=== PATIENT | female | born 1995 | race African-American/Black ===

== ENCOUNTER → 2020-11-13 09:11 | Outpatient (CLI) | payer OTHER, SELFPAY ==
[2020-11-13 10:11] LABS: Add Manual Diff / Slide Review NO; Basophils Absolute Auto 0 /uL (0-100); Basophils Percent Auto 0.3 % (0-2); Eosinophils Absolute Auto 100 /uL (0-450); Eosinophils Percent Auto 0.6 % (2-4); Hematocrit 36.5 % (36-46); Hemoglobin 12.7 g/dL (12.0-16.0); Lymphocytes Absolute Auto 2000 /uL (1100-4500); Lymphocytes Percent Auto 20.8 % (25-40); Mean Corpuscular HGB Conc 34.8 % (30-36); Mean Corpuscular Hemoglobin 28.3 PG (26-34); Mean Corpuscular Volume 81.4 fL (80-100); Monocytes Absolute Auto 700 /uL (0-900); Monocytes Percent Auto 6.8 % (3-14); Neutrophils Absolute Auto 6900 /uL (1500-7000); Neutrophils Percent Auto 71.5 % (50-75); Platelet Count 248 X10^3/uL (150-400); Red Blood Cell Count 4.48 X10^6/uL (4.0-5.2); Red Cell Distribution Width 13.7 % (11.6-14.8); White Blood Cell Count 9.7 X10^3/uL (4.5-11.0)
[2020-11-13 10:15] LABS: Appearance Urine UA CLEAR; Bilirubin Urine UA NEGATIVE (NEGATIVE); Color Urine UA YELLOW; Glucose Urine UA NEGATIVE (Negative); Ketones Urine UA NEGATIVE (NEGATIVE); Leukocyte Esterase Urine UA NEGATIVE (NEGATIVE); Nitrite Urine UA NEGATIVE (Negative); Occult Blood Urine UA NEGATIVE (Negative); Protein Urine UA NEGATIVE (Negative); Specific Gravity Urine UA 1.015 (1.000-1.035); Urobilinogen Urine UA 0.2 E.U./dL (0.2)
[2020-11-14 10:48] LABS: RPR Screen Non Reactive (Non Reactive); Varicella IgG Antibody 588 index (Immune >165)
[2020-11-15 17:14] LABS: HIV 1 & 2 Ab/Ag 4th Gen Combo NEGATIVE (NEGATIVE); Hep C Virus Ab w/Reflex Quant NEGATIVE s/c (NEGATIVE); Hepatitis B Surface Antigen NEGATIVE s/c (NEGATIVE); Rubella Antibody IgG 21.8 IU/mL (>15)
== END ==
PROVIDERS: PCP Family Medicine; Referring Provider Family Medicine; Visit Provider Family Medicine
DX: Z34.81 Encounter for supervision of other normal pregnancy, first trimester (principal)
CPT/HCPCS: 36415; 80055; 81003; 86787; 86803; 86850; 86900; 86901; 87086; 87389

== ENCOUNTER → 2020-12-20 14:14 | Outpatient (CLI) | payer OTHER, SELFPAY ==
[2020-12-28 09:50] LABS: AFP, Serum 58.3 ng/mL (.); Estriol, Free 1.41 ng/mL (.); Inhibin A, Dimeric 273.49 pg/mL (.); Inhibin A, MoM 2.14 (.); Maternal Ethnicity Caucasian (.); Maternal Weight 210 lbs (.); Number of Fetuses No (.); OSBR Risk 1 IN 987 (.); Results Report (.); Test Results *Screen Negative* (.); hCG, MoM 3.29 (.); hCG, Serum 91637 mIU/mL (.)
== END ==
PROVIDERS: PCP Family Medicine; Referring Provider Family Medicine; Visit Provider Family Medicine
DX: Z34.90 Encounter for supervision of normal pregnancy, unspecified, unspecified trimester (principal); Z3A.16 16 weeks gestation of pregnancy
CPT/HCPCS: 36415; 82105; 82677; 84702; 86336

== ENCOUNTER → 2020-12-31 10:34 | Outpatient (CLI) | payer OTHER, SELFPAY ==
--- NOTE | 2020-12-31 10:36 | DI.US.S_ITS ---
PROCEDURE: US OB >= 14 WEEKS FETUS INDICATIONS: ANATOMY SCREENING OUTSIDE/PRIOR DATING DATA: Last menstrual period (LMP): 08/07/2020. LMP-based estimated date of delivery (GABRIELLE): 05/14/2021 . First dating scan (date and location): 12/31/2020 . Estimated date of delivery (GABRIELLE) from first dating scan: 05/22/2021 . TECHNIQUE: Real-time scanning was performed of the fetus, with image documentation and biometric measurements. Endovaginal scanning: No COMPARISON: None. FINDINGS: General: A single living intrauterine gestation is present. Presentation: Vertex. Placenta: Placental position is posterior , and low-lying with the inferior margin of the placenta 1.6 cm above the internal cervical os. Amniotic fluid index: 13.9 cm, normal range is 5-24 cm. heart rate: 155 beats per minute. Maternal cervical canal: 4.6 cm long. Normal lower limit is 2.5 cm. biometrics: Biparietal diameter: 19 weeks 4 days Head circumference: 19 weeks 3 days Abdominal circumference: 19 weeks 5 days Femur length: 20 weeks 2 days Estimated gestational age from initial scan: 19 weeks 5 days Composite gestational age from present scan: 19 weeks 5 days Estimated weight and percentile: 321 g; 9th percentile Measurement variability for biometric dating: +/- 7 days from 14 weeks to 15 weeks 6 days gestation, +/- 10 days from 16 weeks to 21 weeks 6 days gestation, +/- 2 weeks from 22 weeks to 27 weeks 6 days gestation, +/- 3 weeks for 28 weeks gestation or later. weight reference: 4500 g or EFW >90/95% is considered macrosomia or large for gestational age. EFW <10% is small for gestational age. EFW 5% or less is considered intra-uterine growth restriction. Anatomic survey: Neuro: Ventricles are non-dilated at less than 10 mm. Cisterna magna is normal at 3-11 mm. Cerebellum is normal in size and morphology. Nuchal skin fold: Normal at less than 6 mm between 14-21 weeks gestational age. Face: Nose and lips, facial profile are normal. Spine: No evidence for spina bifida. Heart: 4-chambered heart is present, with normal ventricular outflow tracts. Diaphragm: Diaphragm is intact. Stomach: Left-sided stomach is present. Kidneys: No hydronephrosis. Normal is less than 5 mm in 2nd trimester, less than 7 mm in 3rd trimester. Cord: 3-vessel cord has orthotopic insertion. Bladder: Normal in size. Extremities: All 4 extremities identified. IMPRESSION: 1. Single living IUP with composite age of 19 weeks 5 days corresponding to ultrasound GABRIELLE of 05/22/2021. 2. Normal anatomic survey. 3. Low-lying placenta. Follow-up recommended. Dictated by: Mj Tristan [facility] Interpreted: Socrates Shoemaker MD on 12/31/2020 at 13:08 Transcribed by: JOSEPH on 12/31/2020 at 13:10 Approved by: Socrates Shoemaker M.D. on 12/31/2020 at 16:32
== END ==
PROVIDERS: PCP Family Medicine; Referring Provider Family Medicine; Visit Provider Family Medicine
DX: Z36.89 Encounter for other specified antenatal screening (principal); Z3A.19 19 weeks gestation of pregnancy
CPT/HCPCS: 76811

== ENCOUNTER → 2021-02-08 08:57 | Outpatient (CLI) | payer OTHER, SELFPAY ==
--- NOTE | 2021-02-08 08:58 | DI.US.S_ITS ---
PROCEDURE: US OB LIMITED INDICATIONS: SGA; LOW-LYING PLACENTA OUTSIDE/PRIOR DATING DATA: Last menstrual period (LMP): 08/07/2020 . LMP-based estimated date of delivery (GABRIELLE): 05/14/2021 . First dating scan (date and location): 12/31/2020 . Estimated date of delivery (GABRIELLE) from first dating scan: 05/22/2021 . TECHNIQUE: Real-time scanning was performed of the fetus, with image documentation. COMPARISON: None. FINDINGS: A single living intrauterine gestation is present. Presentation: Vertex. Placenta: Placental position is posterior and low lying, without previa. Amniotic fluid index: 14.7 cm, normal range is 5-24 cm. heart rate: 152 beats per minute. Maternal cervical canal: 4.9 cm long. Normal lower limit is 2.5 cm. Estimated gestational age from initial ultrasound: 25 weeks 2 days Estimated gestational age by today's ultrasound: 25 weeks 3 days Estimated weight 851 grams. 60 second percentile. IMPRESSION: 1. Single live intrauterine with an estimated gestational age of 25 weeks 2 days. 2. Posterior low-lying placenta with the inferior margin 1.1 centimeters from the internal os. Dictated by: Blayne Bustamante M.D. on 02/08/2021 at 16:33 Approved by: Blayne Bustamante M.D. on 02/08/2021 at 16:36
== END ==
PROVIDERS: PCP Family Medicine; Referring Provider Family Medicine; Visit Provider Family Medicine
DX: O44.42 Low lying placenta NOS or without hemorrhage, second trimester (principal); O36.5920 Maternal care for other known or suspected poor fetal growth, second trimester, not applicable or unspecified; Z3A.25 25 weeks gestation of pregnancy
CPT/HCPCS: 76815

== ENCOUNTER → 2021-03-03 09:44 | Outpatient (CLI) | payer OTHER, SELFPAY ==
[2021-03-03 11:51] LABS: Hematocrit 32.5 % (36-46); Hemoglobin 10.7 g/dL (12.0-16.0)
[2021-03-03 12:44] LABS: GTT (PREG) 1 Hour PP 50gm Dose 156 mg/dL (76-139)
== END ==
PROVIDERS: PCP Family Medicine; Referring Provider Family Medicine; Visit Provider Family Medicine
DX: Z34.90 Encounter for supervision of normal pregnancy, unspecified, unspecified trimester (principal); Z3A.26 26 weeks gestation of pregnancy
CPT/HCPCS: 36415; 82950; 85014; 85018

== ENCOUNTER → 2021-03-08 07:02 | Outpatient (CLI) | payer OTHER, SELFPAY ==
[2021-03-08 09:38] LABS: Glucose Fasting 93 mg/dL (70-100)
[2021-03-08 09:54] LABS: Glucose 1 Hour 175 mg/dL (70-170)
[2021-03-08 10:21] LABS: Glucose 2 Hour 142 mg/dL (70-140)
[2021-03-08 10:37] LABS: Glucose Tol Interpretation INTERPRETATION
[2021-03-08 12:21] LABS: Glucose 3 Hour 103 mg/dL (70-115)
== END ==
PROVIDERS: PCP Family Medicine; Referring Provider Family Medicine; Visit Provider Family Medicine
DX: Z34.83 Encounter for supervision of other normal pregnancy, third trimester (principal); Z3A.29 29 weeks gestation of pregnancy
CPT/HCPCS: 36415; 82951; 82952

== ENCOUNTER → 2021-04-14 09:34 | Outpatient (CLI) | payer OTHER, SELFPAY ==
--- NOTE | 2021-04-14 11:51 | DIAB.GDA ---
Initial Gestational Diabetes Assessment Name: Sonya Alford Date: 04/14/21 Time: 930-1030a Dx: Gestational Diabetes Provider: Emmanuel GABRIELLE: 05/18/21 P: 0 Weeks: 35 Sonya presents for initial diabetes visit. PMH PCOS. No h/o HgA1c in labs. Elevated OGTT with 1 and 2 hour. States she has discussed nutrition [place] Has been conscious of carb intake and trying to be more active. Seems to have a good base knowledge of GDM pathophysiology and link to insulin resistance. Some high carb intake with fruit beverages (45g CHO per serving). Has been fasting as provider suggested for 12 hours overnight. Improved FBG with this, though endorses feeling quite hungry before bed. Sometimes having fruit beverage at 830p or in the afternoon, which may contribute to elevated dinner numbers. Otherwise most meals and snacks are within reccs. Some snacks missing protein. Staying well hydrated. Recently returned from [place] (baby shower with family there). Reports some potential higher carb intake during the trip. Anthropometrics: Ht: 62 Wt: 219.1# (last provider visit- seeing provider today and will get weight) Prepregnancy wt: 205# Physical Activity: Most days walks dogs 1-2 x per day for 20-30 min each. Endorses walking with family during vacation. Self-Monitoring Blood Glucose: No FBG elevations. No after breakfast elevations. 3/6 elevated lunch and 3/6 elevated dinner readings. Denies higher carb intake at these meals. Could be the fruit drink on these days? Encouraged physical activity after meals and avoiding sweetened beverages. Date Pre Post Pre Post Pre Post HS 04/08 90 105 126 124 04/09 90 117 127 120 04/10 90 119 107 123 04/11 89 112 112 114 04/12 86 120 130 108 04/13 84 108 123 126 04/14 88 111 Diabetes Medications: None Pertinent Labs: OGTT: 93, 175 H, 142 H, 103 Intervention: This participant was very receptive. Provided appropriate educational handouts. Discussed the following topics: GDM pathophysiology and impact of hyperglycemia on mom and baby Risk for T2DM for mom and baby in the future Ways to reduce risk T2DM Plate Method, meal timing, carb counting, pairing macronutrients and spreading out CHO for better BG management, balanced snacks, impact of sweetened beverages on BG reccs benefits and resources OGTT HGA1c Blood glucose goals (FBG: <95 and 2 hour <120 mg/dL) Impact of macronutrients on blood glucose Recommended servings for carbohydrates at meals and snacks Brainstormed appropriate meal plan based on her food preferences Role of physical activity and following provider guidelines for safety Goals: Avoid juice/fruit beverages Have protein at meals and snacks Stay active- try to be active after meals Sonya is having some hyperglycemia after lunch and dinner. It is hard to say exactly why this is. Seems related to fruit beverage choice, since she endorses reasonable carb intake at meals. She may benefit from medication management, but fastings are in range and her postprandial readings may improve now that she has returned from vacation with family. She plans to see her provider today. Follow-up: KILO MARQUES follow-up prn. Since she is quite late in her , she would like to follow-up as needed. LILIAM/SHELLI agreed to this plan, but advised that if she is ends up on DM medications we should meet again to further discuss. She agreed to this plan. Wanda Torres RDN, SHELLI Certified Diabetes Care and Homebound Teacher T: [phone] F: [phone] [email or web address] Thank you for this referral
== END ==
PROVIDERS: PCP Family Medicine; Referring Provider Family Medicine; Visit Provider Family Medicine
DX: O24.410 Gestational diabetes mellitus in pregnancy, diet controlled (principal)
CPT/HCPCS: G0108

== ENCOUNTER → 2021-04-21 14:15 | Outpatient (CLI) | payer OTHER, SELFPAY ==
--- NOTE | 2021-04-21 14:15 | DI.US.S_ITS ---
PROCEDURE: US OB LIMITED INDICATIONS: Gestational diabetes, check growth OUTSIDE/PRIOR DATING DATA: Last menstrual period (LMP): 08/07/2020. LMP-based estimated date of delivery (GABRIELLE): 05/14/2021. First dating scan (date and location): 12/31/2020. Estimated date of delivery (GABRIELLE) from first dating scan: 05/22/2021. TECHNIQUE: Real-time scanning was performed of the fetus, with image documentation and biometric measurements. COMPARISON: [facility], OB LIMITED, 02/08/2021, 9:12. FINDINGS: General: A single living intrauterine gestation is present. Presentation: Vertex Placenta: Placental position is posterior. Lower edge of placenta and cervix are not well seen on this study. Amniotic fluid index: 8.9 cm, normal range is 5-24 cm. heart rate: 137 beats per minute. Maternal cervical canal: Not well seen . biometrics: Biparietal diameter: 8.6 cm, 34 weeks, 6 days. Head circumference: 30.9 cm, 34 weeks, 3 days. Abdominal circumference: 29.8 cm, 33 weeks, 6 days. Femur length: 7 cm, 35 weeks, 5 days Estimated gestational age from initial scan: 35 weeks, 4 days Composite gestational age from present scan: 34 weeks, 5 days. Estimated weight and percentile: 2448 grams, 22 percent. Measurement variability for biometric dating: +/- 7 days from 14 weeks to 15 weeks 6 days gestation, +/- 10 days from 16 weeks to 21 weeks 6 days gestation, +/- 2 weeks from 22 weeks to 27 weeks 6 days gestation, +/- 3 weeks for 28 weeks gestation or later. weight reference: 4500 g or EFW >90/95% is considered macrosomia or large for gestational age. EFW <10% is small for gestational age. EFW 5% or less is considered intra-uterine growth restriction. Other: Not applicable. IMPRESSION: 1. Single live intrauterine with fetus in vertex presentation. heart rate is 137 beats per minute. Normal growth and normal amount of amniotic fluid. 2. Lower edge of placenta and cervix are not well visualized on this study. Low lying placenta cannot be excluded. 3. Estimated weight is at 22 percent on the current study. Dictated by: Socrates Shoemaker M.D. on 04/21/2021 at 16:04 Approved by: Socrates Shoemaker M.D. on 04/21/2021 at 16:06
== END ==
PROVIDERS: PCP Family Medicine; Referring Provider Family Medicine; Visit Provider Family Medicine
DX: O24.410 Gestational diabetes mellitus in pregnancy, diet controlled (principal); Z3A.34 34 weeks gestation of pregnancy
CPT/HCPCS: 76815

== ENCOUNTER → 2021-04-22 09:39 | Outpatient (CLI) | payer OTHER, SELFPAY ==
[2021-04-23 12:50] LABS: Strep Grp B PCR NEG for Grp B Strep
== END ==
PROVIDERS: PCP Family Medicine; Visit Provider Family Medicine
DX: Z3A.36 36 weeks gestation of pregnancy (principal)
CPT/HCPCS: 87653

== ENCOUNTER → 2021-05-03 07:14 | Outpatient (CLI) | payer OTHER, SELFPAY ==
--- NOTE | 2021-05-03 07:15 | DI.US.S_ITS ---
PROCEDURE: US OB LIMITED INDICATIONS: LOW-LYING PLACENTA OUTSIDE/PRIOR DATING DATA: Last menstrual period (LMP): 08/07/2020. LMP-based estimated date of delivery (GABRIELLE): 05/14/2021. First dating scan (date and location): 12/31/2020. Estimated date of delivery (GABRIELLE) from first dating scan: 05/22/2021. . TECHNIQUE: Real-time scanning was performed of the fetus, with image documentation. COMPARISON: [facility], OB LIMITED, 02/08/2021, 9:12. [facility], OB >= 14 WEEKS FETUS, 12/31/2020, 9:57. [facility] OB LIMITED, 04/21/2021, 14:31. FINDINGS: A single living intrauterine gestation is present. Presentation: Vertex. Placenta: Placental position is posterior, without previa. The head is at the cervix. On the images provided, there is no visualization of placenta in relation to the cervix. Amniotic fluid index: 12.3 cm, normal range is 5-24 cm. heart rate: 157 beats per minute. Maternal cervical canal: 3.8 cm. Estimated gestational age from initial scan: 37 weeks 2 days. IMPRESSION: 1. Single live intrauterine . 2. Poor visualization of the placenta as described above. However, given images provided, there is no suspicion for placental previa or low lying placenta. Dictated by: Crista Esparza M.D. on 05/03/2021 at 12:57 Approved by: Crista Esparza M.D. on 05/03/2021 at 14:42
== END ==
PROVIDERS: Referring Provider Family Medicine; Visit Provider Family Medicine
DX: O44.43 Low lying placenta NOS or without hemorrhage, third trimester (principal); Z3A.37 37 weeks gestation of pregnancy
CPT/HCPCS: 76815; 76817

== ENCOUNTER 2021-05-15 18:58 | Inpatient (IN) | payer OTHER, SELFPAY ==
[2021-05-15 20:08] VITALS: BP 138/85
[2021-05-15 20:28] LABS: Add Manual Diff / Slide Review NO; Basophils Absolute Auto 100 /uL (0-100); Basophils Percent Auto 1.1 % (0-2); Eosinophils Absolute Auto 0 /uL (0-450); Eosinophils Percent Auto 0.4 % (2-4); Hematocrit 31.2 % (36-46); Hemoglobin 10.2 g/dL (12.0-16.0); Lymphocytes Absolute Auto 2100 /uL (1100-4500); Mean Corpuscular HGB Conc 32.6 % (30-36); Mean Corpuscular Hemoglobin 23.5 PG (26-34); Mean Corpuscular Volume 72.1 fL (80-100); Monocytes Absolute Auto 700 /uL (0-900); Monocytes Percent Auto 6.3 % (3-14); Neutrophils Absolute Auto 7800 /uL (1500-7000); Neutrophils Percent Auto 72.2 % (50-75); Platelet Count 307 X10^3/uL (150-400); Red Blood Cell Count 4.33 X10^6/uL (4.0-5.2); Red Cell Distribution Width 15.4 % (11.6-14.8); White Blood Cell Count 10.7 X10^3/uL (4.5-11.0)
[2021-05-15] MEDS: DINOPROSTONE VAG (CERVIDIL) 10 MG VAG (20:30)
[2021-05-15] MEDS: CALCIUM CARBONATE 500 MG TAB 1000 MG PO (20:48)
[2021-05-16 00:46] LABS: COVID19 -Nasal RAPID Negative (Negative)
[2021-05-16] MEDS: CALCIUM CARBONATE 500 MG TAB 1000 MG PO ×3 (01:55→13:00)
[2021-05-16] MEDS: ZOLPIDEM 5 MG TABLET PO (01:55)
[2021-05-16] MEDS: fentaNYL 100 MCG/2 ML INJ 50 MCG IV ×2 (04:48→06:46)
--- NOTE | 2021-05-16 07:13 | PM.OBHP.IH.1 ---
OB HPI Date/Time Date of admission: 05/15/21 Date Patient Seen: 05/16/21 Time Patient Seen: 08:00 History of Present Condition Chief complaint: INDUCTION GABRIELLE Calculator Estimated Delivery Date Method Current WG Current Estimate 05/18/21 Conception 39w 5d Other Estimates 05/14/21 LMP (Certain) 40w 2d 05/19/21 Ultrasound #1 39w 4d : 1 Para: 0 Narrative: 26-year-old 39 weeks and 5 days gestation here for induction due to GDM A1. Diabetes has been well controlled with diet alone all sugars within normal range. Last estimated weight 22nd percentile. She received Cervidil overnight and has been alexus painfully for several hours. Good movement, no leaking or bleeding. care: good care, initiated at week # (10), number of visits (13) and pounds weight gain (19) Dating criteria OB: other (Conception date ) Ultrasounds: normal mid trimester US Obstetrical complications: gestational diabetes Medical complications OB: none Indications Indication for induction OB: gestational diabetes Preadmission Labs Last OB Lab Results: Blood Type A Positive 05/15/21 20:15 05/15/21 Antibody Screen Negative 05/15/21 20:15 05/15/21 Hematocrit 31.2 % (36-46) L 05/15/21 20:15 05/15/21 Hemoglobin 10.2 g/dL (12.0-16.0) L 05/15/21 20:15 05/15/21 Hepatitis B Surface Antigen Negative s/c (NEGATIVE) 11/13/20 09:42 11/13/20 Hepatitis C Antibody Negative s/c (NEGATIVE) 11/13/20 09:42 11/13/20 Rubella Antibody 21.8 IU/mL (>15) 11/13/20 09:42 11/13/20 Varicella-Zoster IgG Antibody 588 index (Immune >165) 11/13/20 09:42 11/13/20 Glucose 1 Hour 156 mg/dL (76-139) H 03/03/21 11:05 03/03/21 Group B Streptococcus (PCR) Neg for grp b strep 04/22/21 09:39 04/22/21 Glucose Tolerance Testing: Fasting (93), 1 hr (175), 2 hr (142) and 3 hr (103) -: Chlamydia screen: negative, Gonorrhea screen: negative and Urine: negative -: PAP smear: Normal Genetic Screens: Quad screen: Normal External Labs -: Urine: negative Evaluation Evaluation Baseline heart rate: 130 Variability: Moderate (11-25) monitor accelerations: Present Monitor Decelerations: Absent Contraction Frequency (minutes): 5 Category of Tracing: Reactive Status: Category l Dilation (cm): 3 Effacement (%): 90 Dilation: 3-4 cm Effacement: >/=80% station: -3 Position of cervix: anterior Consistency: soft Borrego score: 9 [facility] Medical History Anxiety (~05/2020) Bronchitis Chlamydia (~2015) Chronic pelvic pain in female Constipation Depression (~05/2020) Frequent headaches (~08/2020) GDM, class A1 Infertility (~08/25/20) 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 Mother Pre-eclampsia affecting childbirth Grandfather Cancer Leukemia Diabetes mellitus Grandmother No problems noted. Grandfather No problems noted. Grandmother No problems noted. Brother No problems noted. Sister No problems noted. Social History marital status: unmarried,living together household members: significant other lives independently: Yes pets and animals: Yes (X 2 dogs) education level: high school occupational status: employed ([employer] ) current occupational exposures/hazards: No yaz/mandaen: [employer] special yaz needs: No Smoking Status: Never smoker Tobacco: How many years used: 2 Smokeless tobacco user: dissolvable tobacco quit status: quit date established (2 years ago (Intake is 11/09/20)) second hand exposure: No alcohol intake: former (pre-prenancy : wine occasional use) substance use type: does not use Meds Home Medications and Allergies Home Medications Medication Instructions Recorded Confirmed Type acetaminophen 325 mg capsule 325 mg PO ONCE PRN 11/09/20 03/11/21 History (Tylenol) prenat.vits,naina,bqm-gamw-iogwk 1 tab PO DAILY 11/09/20 03/11/21 History pyridoxine (vitamin B6) 25 mg 25 mg PO DAILY 11/09/20 03/11/21 History tablet Double Electric Breast Pump and #1 ea 03/04/21 03/11/21 Rx supplies blood sugar diagnostic (Blood #100 ea 03/11/21 03/11/21 Rx Glucose Test) blood-glucose meter #1 ea 03/11/21 03/11/21 Rx lancets #100 ea 03/11/21 03/11/21 Rx Allergies Allergy/AdvReac Type Severity Reaction Status Date / Time No Known Drug Allergies Allergy Verified 01/10/21 09:31 Review of Systems Review of Systems ROS: Yes All systems reviewed with the patient and are negative except as otherwise documented OB Exam Narrative Exam Narrative: Temperature 36.2? blood pressure 120/68 heart rate 107 HENMT Head: normal to inspection Mouth: oral mucosae normal Eyes General: appearance normal, both eyes and all related structures Resp Effort & Inspection: normal respiratory effort Auscultation: clear to auscultation bilaterally Cardio Rate: regular rate Rhythm: regular rhythm Heart Sounds: S1 normal and S2 normal Extremities Lower extremity: Yes normal to inspection; No edema Estimated Weight (lbs): 7 Objective Labs Result Diagrams: 05/15/21 20:15 Labs: Laboratory Results - last 24 hr 05/15/21 05/15/21 05/15/21 20:06 20:15 20:15 WBC 10.7 RBC 4.33 Hgb 10.2 L Hct 31.2 L MCV 72.1 L MCH 23.5 L MCHC 32.6 RDW 15.4 H Plt Count 307 Neut % (Auto) 72.2 Lymph % (Auto) 20.0 L [place] % (Auto) 6.3 Eos % (Auto) 0.4 L Baso % (Auto) 1.1 Neut # (Auto) 7800 H Lymph # (Auto) 2100 [place] # (Auto) 700 Eos # (Auto) 0 Baso # (Auto) 100 SARS-CoV-2 (PCR) Negative Blood Type A Positive Antibody Screen Negative Assessment and Plan Assessment and Plan Assessment and Plan narrative: 26 year old at 39 weeks and 5 days here for induction due to well-controlled GDMA1. S/p Cervidil overnight, Borrego score of 9 this morning and she is alexus on her own. GBS negative. Will plan to start Pitocin if contractions do not continue spontaneously. Epidural upon request. Anticipate .
[2021-05-16] MEDS: LACTATED RINGERS 1,000 ML 100 ML IV ×5 (08:50→18:08)
--- NOTE | 2021-05-16 13:28 | PM.OBPNLAB ---
Date/Time Date Patient Seen: 05/16/21 Time Patient Seen: 12:30 Pain Control Pain control: epidural Comments: Very comfortable with epidural, has not felt anything. Pelvic Exam Dilation (cm): 4 Effacement (%): 100 station: -2 Amniotic membrane status: Ruptured (thin meconium) Contractions Contraction frequency (min): 4 Status status: Category l Heart Rate Baseline: 130 Monitor Accelerations: Present Monitor Decelerations: Absent Monitor Variability: Moderate Assessment and Plan Assessment: active labor Plan: continuous present management Comments: AROM with thin meconium. Discussed the need for RT at delivery. She is making progress spontaneously. Will start pitocin if contractions space.
--- NOTE | 2021-05-16 15:39 | PM.OBPNLAB ---
Date/Time Date Patient Seen: 05/16/21 Time Patient Seen: 15:15 Pain Control Pain control: epidural Pelvic Exam Dilation (cm): 6 Effacement (%): 100 station: -2 Amniotic membrane status: Ruptured (thin meconium) Contractions Contraction frequency (min): 3 Status status: Category ll Heart Rate Baseline: 160 Monitor Accelerations: Present Monitor Decelerations: Late (Recurrent) Monitor Variability: Moderate Assessment and Plan Plan: Comments: 26 year old at 39+5 weeks in active labor now with recurrent late decelerations despite IV fluid boluses and position change. head still quite high in the pelvis as well. Patient is afebrile without signs of chorioamnionitis. Given recurrent late decelerations and remote from delivery, will proceed with primary section for intolerance of labor. Consulted with Dr. Knight who is in agreement. Risks (bleeding, infection, injury to bowel, bladder, surrounding organs) and benefits reviewed with patient. Consent signed. 2g Ancef prior to surgery. She consents to blood transfusion if needed.
--- NOTE | 2021-05-16 15:42 | PM.PREOP ---
Pre-operative Note COVID-19 COVID-19 status: Negative Result date/Date tested (Pos, Neg/Pending): 05/15/21 Interval Note History & Physical reviewed/Exam performed by Physician: Yes Changes to H&P: No
[2021-05-16] MEDS: CITRIC ACID/SODIUM CITRATE 15 ML SOLUTION 30 ML PO (15:58)
[2021-05-16] MEDS: CEFAZOLIN 2 GM/20 ML SYRINGE IV (16:05)
--- NOTE | 2021-05-16 16:40 | SUR.OPER ---
Supine on Padded OR bed, head on pillow, safety belt at thigh, arms secured on padded arm boards at <90 degrees abduction. Bump under right buttock. Legs uncrossed with pillow under knees, gel pad to heels, tape over blanket to lower legs.
--- NOTE | 2021-05-16 16:41 | SUR.OPER ---
viable female delivered at 1624. Cord blood and placenta sent with L&D nurses.
--- NOTE | 2021-05-16 17:14 | PM.OBCS.1 ---
Operative Date/Time/Diagnoses Date of procedure: 05/16/21 Pre-op diagnosis: intolerance of labor 39 weeks of Post-op diagnosis: same Procedure & Clinicians Procedure: Primary low transverse section Same procedure as scheduled: Yes Indications: intolerance of labor Surgeon: Kasia Benitez [employer] Specialist: Joya Fragoso Reason for [employer] Specialist: Dr. Fragoso was essential for retraction, delivery of and suturing of the fascia. Anesthesia Type: Epidural Operative Notes Findings: Viable female polycystic ovaries bilaterally, normal uterus Closure Type: primary Specimen(s): cord blood and cord pH Estimated Blood Loss (mL): 700 Procedure in detail: The patient was taken to the operating room where she was transferred to the operating table. She was then placed in the dorsal supine position with a leftward tilt. She was prepped and draped in the usual sterile fashion. A timeout was performed. After epidural analgesia was found to be adequate, a Pfannenstiel skin incision was made 2 fingerbreadths above the pubic symphysis and carried through to the underlying layer fascia. The fascia was nicked in the midline and the incision extended bilaterally with Ford scissors. The superior aspect of the fascial incision was grasped with a Ruddy clamps, elevated, and the underlying rectus muscles dissected off sharply and bluntly. Attention was then turned to the inferior aspect of this incision which in a similar fashion was grasped with a Ruddy clamps, elevated, and the underlying rectus muscles dissected off sharply and bluntly. The rectus muscles were in the midline. The peritoneum was identified, grasped between 2 hemostats, and entered sharply with the Metzenbaum scissors. This incision was extended superiorly and inferiorly with good visualization of the bladder. The bladder blade was inserted. The vesicouterine peritoneum was identified, grasped with the pickup, and entered sharply with the Metzenbaum scissors. This incision was extended bilaterally, and the bladder flap was created digitally. The bladder blade was reinserted. The lower uterine segment was incised in a transverse fashion with the scalpel. Upon entering the amniotic sac there was a small amount of meconium stained amniotic fluid. The infant's head was delivered by Dr. Fragoso. The remainder of the body delivered without difficulty. The cord was double clamped and cut. The infant was handed off to waiting RN and RT. The placenta was delivered manually after avulsion of the cord. The uterus was cleared of all clots and debris. The uterine incision was repaired with #1 chromic in a running interlocking fashion and a second layer the same suture was used for an imbricating layer. Hemostasis was achieved. The tubes and ovaries were examined and ovaries polycystic in appearance. The gutters were cleared of all clots and debris. The bladder flap was reapproximated using 2-0 Vicryl in a running fashion. The parietal peritoneum was closed using 2-0 Vicryl in a running fashion. The fascia was reapproximated using #1 Vicryl in a running fashion. Subcutaneous layer was copiously irrigated with warm normal saline. 3 simple interrupted sutures of 3-0 Vicryl were placed to reapproximate the subcutaneous layer. The skin was closed with 4-0 undyed Vicryl in a subcuticular fashion. Steri-Strips were placed. An Aquacel dressing was placed. The uterus was expressed of a small amount of old blood. Sponge, lap, and instrument counts were correct. The patient tolerated the procedure well, and was taken to PACU in stable condition. [place] Baby 1: Infant Gender: Female Presentation: vertex Position: Right Occiput Anterior Placental Delivery Description: Manual Removal (After avulsion of cord) Cord Vessel Description: 3 Vessels score (1 min): 7 score (5 min): 9 weight: 7 lb 11.459 oz Post-operative Condition: stable Disposition: PACU Aftercare: routine postop
[2021-05-16 17:15] VITALS: BP 116/58; PULSE 108; RESP 17; TEMP 36.7; O2SAT 100
[2021-05-16 17:20] VITALS: BP 116/66; PULSE 97; RESP 20; O2SAT 100
[2021-05-16 17:25] VITALS: BP 123/72; BP 123/73; PULSE 96; RESP 15; RESP 16; O2SAT 100
[2021-05-16 17:35] VITALS: BP 129/82; PULSE 89; RESP 18; TEMP 36.7; O2SAT 97
--- NOTE | 2021-05-16 18:31 | SUR.PHASEI ---
Late entry: Stable PACu stay, to after report called to EDEL [place]
[2021-05-16 19:47] LABS: Base Excess Cord Arterial Bld -6 (-9.0-2.2); CO2 Cord Arterial Blood 55.1 (40-71); HCO3 Cord Arterial Blood 21.6 (17-27); PO2 Cord Arterial Blood 9 (6-30)
[2021-05-16 19:48] LABS: Oxygen Sat Cord Arterial Blood 6 (5-59)
[2021-05-17 03:43] VITALS: BP 121/67; PULSE 80; RESP 16; TEMP 36.7
[2021-05-17] MEDS: ACETAMINOPHEN 325 MG TABLET 650 MG PO ×3 (05:49→18:06)
[2021-05-17] MEDS: IBUPROFEN 600 MG TABLET PO ×3 (05:50→18:06)
--- NOTE | 2021-05-17 08:19 | P.PNOB_ITS ---
Subjective - OB Subjective Patient comments: no complaints, pain well controlled, tolerating diet and flatus present baby status: doing well [place] feeding status: breast and bottle feeding Narrative: Doing well, denies complaints this morning. Pain controlled with ibuprofen and Tylenol. Vaginal bleeding was a bit heavier first and has now more like a menstrual period. She is breast-feeding and also supplementing with formula due to hypoglycemia in the . Catheter is out she has not yet voided. Ambulating without difficulty and tolerating a diet. Date Patient Seen: 05/17/21 Time Patient Seen: 08:00 Exam Vital Signs (past 8 hours): Oxygen Delivery Method Room Air Temperature 98.2? blood pressure 133/64 heart rate 80 respirations 16 Narrative Exam Narrative: General: Awake and alert, no acute distress. HEENT: NCAT, EOMI, moist oral mucosa CV: Regular rate and rhythm, no murmurs, rubs or gallops Lungs: CTAB, no wheezes, rales, or rhonchi Abdomen: Aquacel dressing intact without drainage. Soft, nontender; bowel tones active; uterus firm 1 cm below umbilicus. Extremities: Warm, trace edema bilaterally, 2+ pedal pulses bilaterally Objective Labs Result Diagrams: 05/17/21 08:20 Labs: Laboratory Results - last 24 hr 05/16/21 16:50 Cord ABG pH 7.20 Cord ABG pCO2 55.1 Cord ABG pO2 9 Cord ABG HCO3 21.6 Cord ABG Base Excess -6 Cord ABG O2 Sat 6 Assessment & Plan Assessment and Plan (1) intolerance to labor, delivered, current hospitalization: Status: Acute (2) S/P : Status: Acute Plan day: 1 plan OB: routine postop care Comments: 26-year-old after primary for intolerance of labor. She is doing very well. Pain well controlled and vaginal bleeding as expected. Continue routine postop care. Anticipate discharge home tomorrow. Time Spent With Patient Time: Total time spent is greater than 50% in coordination of care (as documented) at patient's floor/unit and/or counseling patient: Time with patient: less than 15 minutes
[2021-05-17 09:12] LABS: Hematocrit 26.5 % (36-46); Hemoglobin 8.5 g/dL (12.0-16.0)
[2021-05-17] MEDS: DOCUSATE 100 MG CAPSULE 200 MG PO (10:06)
[2021-05-17] MEDS: FERROUS SULFATE 325 MG TABLET PO (10:06)
[2021-05-17] MEDS: OXYCODONE IR 5 MG TABLET PO ×2 (10:07→18:07)
[2021-05-17] MEDS: PRENATAL VIT,CALC/IRON/FOLIC 1 TABLET 1 TAB PO (10:07)
[2021-05-18] MEDS: IBUPROFEN 600 MG TABLET PO ×2 (00:33→06:31)
[2021-05-18] MEDS: ACETAMINOPHEN 325 MG TABLET 650 MG PO ×2 (00:33→06:32)
[2021-05-18] MEDS: OXYCODONE IR 5 MG TABLET PO ×2 (00:33→06:31)
--- NOTE | 2021-05-18 08:41 | PM.OBDS.1 ---
Discharge Providers Provider Date of admission: 05/15/21 18:58 Discharge Date: 05/18/21 Primary care physician: Kasia Benitez DO Consults: 05/16/21 17:42 Consult to Poison Information Specialist Routine Comment: Discharge provider: Kasia Benitez DO Summary Hospital Course Date Patient Seen: 05/18/21 Time Patient Seen: 08:47 Diagnoses: 39 weeks of GDM A1 Status post intolerance of labor Hospital Course: Patient is a 26-year-old after primary section for intolerance of labor at 39 weeks and 5 days gestation on 05/16/21. Patient was brought in for induction due to gestational diabetes. She progressed after Cervidil and went on to receive an epidural. In the hours following rupture membranes (with thin meconium), tachycardia developed along with recurrent late decelerations. Multiple attempts were made at resuscitation with position change and fluid boluses however no improvement so the decision was made for primary section. There were no maternal fevers or signs of chorioamnionitis to cause tachycardia. was uncomplicated and infant delivered with Apgars of 7 and 9. course was uncomplicated. She was ambulating, voiding and passing flatus. Pain controlled with ibuprofen, Tylenol and oxycodone. Vaginal bleeding with similar to a menstrual cycle for her. She was attempting to breast-feed though supplementing with formula as well. She was eager to return with her . Advised patient to call for fevers, severe pain or bleeding through more than a pad an hour. She will follow-up in clinic next week for Aquacel dressing removal. We will also see her in clinic in a couple days with born. Peripartum Data Delivery Method: Section complications: none [place] 1: Gender: Female Disposition of : home Discharge Diagnosis (1) intolerance to labor, delivered, current hospitalization: Status: Acute (2) S/P : Status: Acute (3) 39 weeks gestation of : Status: Acute (4) GDM, class A1: Status: Acute Status at Discharge Cognitive/behavioral status at discharge: at baseline, oriented Functional status at discharge: independent ambulation Overall status at discharge: patient is progressing back to baseline Time Spent with Patient Time attestation: Total time spent providing and/or coordinating discharge services: Objective Labs Result Diagrams: 05/17/21 08:20 Labs: Laboratory Results - last 24 hr 05/17/21 08:20 Hgb 8.5 L Hct 26.5 L Exam Vital Signs (past 8 hours): Oxygen Delivery Method Room Air Temperature 97.4? blood pressure 117/79 heart rate 102 Narrative Exam Narrative: General: Awake and alert, no acute distress. HEENT: NCAT, EOMI, moist oral mucosa CV: Regular rate and rhythm, no murmurs, rubs or gallops Lungs: CTAB, no wheezes, rales, or rhonchi Abdomen: Aquacel dressing intact without drainage. Soft, nontender; bowel tones active; uterus firm 1 cm below umbilicus. Extremities: Warm, 1+ edema bilaterally Discharge Plan Discharge Plan Patient Disposition: Home Discharge orders & Medications Prescriptions: New ferrous sulfate 325 mg (65 mg iron) Tablet 325 mg PO DAILY Qty: 30 0RF docusate sodium 100 mg Capsule 200 mg PO DAILY Qty: 30 0RF ibuprofen 600 mg Tablet 600 mg PO Q6H PRN (Reason: Fever/Mild Pain (1-3)) Qty: 30 0RF oxycodone 5 mg Tablet 5 mg PO Q4H PRN (Reason: Pain, Moderate (4-6)) Qty: 20 0RF Continued prenat.vits,naina,osp-jbpc-enubq Tablet 1 tab PO DAILY 0RF acetaminophen [Tylenol] 325 mg capsule 325 mg PO ONCE PRN (Reason: Pain (Scale Score 1-3)) 0RF Discontinued (DME) Blood Glucose Test Strip See Rx Instructions .ROUTE .MEDSUPPLY Qty: 100 11RF Rx Instructions: Use to test blood sugar daily as directed (DME) lancets Mis See Rx Instructions .ROUTE .MEDSUPPLY Qty: 100 11RF Rx Instructions: Use to test blood sugar daily as directed (DME) blood-glucose meter Misc See Rx Instructions .ROUTE .MEDSUPPLY Qty: 1 0RF Rx Instructions: Use to test blood sugar daily as directed (DME) Double Electric Breast Pump and supplies See Rx Instructions .ROUTE .MEDSUPPLY Qty: 1 0RF Rx Instructions: Use daily as directed pyridoxine (vitamin B6) 25 mg tablet 25 mg PO DAILY 0RF Follow up/Referrals: Kasia Benitez DO [Primary Care Provider] - 05/24/21 10:00 am Diet/Activity/Treatments Diet: Diet as Tolerated Skin/Wound/Dressing Care Report to your healthcare provider any signs of infection, such as:: chills, fever, night sweats, increased pain, unusual drainage and unusual redness Visit Report/Discharge Packet Visit Report Forms: Patient Portal/API, Stroke Signs & Symptoms Discharge Data Primary Care Provider: Kasia Benitez
[2021-05-18] MEDS: DOCUSATE 100 MG CAPSULE 200 MG PO (08:55)
[2021-05-18] MEDS: FERROUS SULFATE 325 MG TABLET PO (11:17)
[2021-05-18] MEDS: PRENATAL VIT,CALC/IRON/FOLIC 1 TABLET 1 TAB PO (11:17)
== END 2021-05-18 11:41 | disposition home or self-care (01) | DRG 788 ==
PROVIDERS: Admitting Provider Family Medicine; PCP Family Medicine; Referring Provider Family Medicine; Visit Provider Family Medicine
PROC: 10D00Z1 Extraction of Products of Conception, Low, Open Approach (ICD-10-PCS; CPT 59514; principal; 2021-05-16 15:45)
DX: O24.420 Gestational diabetes mellitus in childbirth, diet controlled (principal); O77.9 Labor and delivery complicated by fetal stress, unspecified; O77.0 Labor and delivery complicated by meconium in amniotic fluid; Z3A.39 39 weeks gestation of pregnancy; Z37.0 Single live birth; Z20.822 Contact with and (suspected) exposure to COVID-19
CPT/HCPCS: 01967; 01968; 36415; 59050; 59200; 59510; 59514; 82803; 85014; 85018; 85025; 86850; 86900; 86901; 87635; C9803; G0379; J0690; J1885; J2274; J2405; J2590; J3010

== ENCOUNTER → 2021-12-23 12:55 | Outpatient (CLI) | payer OTHER, SELFPAY ==
--- NOTE | 2021-12-23 12:56 | DI.US.S_ITS ---
PROCEDURE: US OB <= 14 WEEKS FETUS INDICATIONS: Dating and viability; dates very unclear OUTSIDE/PRIOR DATING DATA: Last menstrual period (LMP): Unknown LMP-based estimated date of delivery (GABRIELLE): Not applicable. First dating scan (date and location): 12/23/2021. Estimated date of delivery (GABRIELLE) from first dating scan: 07/17/2022. The calculations are made using the GABRIELLE of 07/17/2022. TECHNIQUE: Real-time scanning was performed of the fetus and maternal pelvic organs, with image documentation. Endovaginal scanning was also performed to better visualize the fetus and maternal ovaries. COMPARISON: None. FINDINGS: At the uterine fundus there is a gestational sac containing a conceptive switch measures 3.6 cm in crown-rump length. Estimated gestational age 10 weeks 4 days on the basis of crown-rump length. Left ovarian corpus luteum cyst. Ovaries otherwise normal. IMPRESSION: Single living intrauterine gestation, estimated gestational age 10 weeks 4 days. Dictated by: Conrado Escalante M.D. on 12/23/2021 at 13:27 Approved by: Conrado Escalante M.D. on 12/23/2021 at 13:28
== END ==
PROVIDERS: PCP Family Medicine; Referring Provider Family Medicine; Visit Provider Family Medicine
DX: Z36.87 Encounter for antenatal screening for uncertain dates (principal); Z3A.10 10 weeks gestation of pregnancy
CPT/HCPCS: 76801

== ENCOUNTER → 2022-02-13 12:04 | Outpatient (CLI) | payer OTHER, SELFPAY ==
[2022-02-13 13:00] LABS: Appearance Urine UA CLOUDY; Bilirubin Urine UA NEGATIVE (NEGATIVE); Color Urine UA YELLOW; Glucose Urine UA NEGATIVE (Negative); Ketones Urine UA NEGATIVE (NEGATIVE); Leukocyte Esterase Urine UA NEGATIVE (NEGATIVE); Nitrite Urine UA NEGATIVE (Negative); Occult Blood Urine UA NEGATIVE (Negative); Protein Urine UA NEGATIVE (Negative); Specific Gravity Urine UA 1.015 (1.000-1.035); Urobilinogen Urine UA 0.2 E.U./dL (0.2)
[2022-02-13 14:23] LABS: Add Manual Diff / Slide Review NO; Basophils Absolute Auto 0 /uL (0-100); Basophils Percent Auto 0.3 % (0-2); Eosinophils Absolute Auto 100 /uL (0-450); Eosinophils Percent Auto 0.9 % (2-4); Hematocrit 34.4 % (36-46); Hemoglobin 11.8 g/dL (12.0-16.0); Lymphocytes Absolute Auto 1700 /uL (1100-4500); Lymphocytes Percent Auto 19.7 % (25-40); Mean Corpuscular HGB Conc 34.3 % (30-36); Mean Corpuscular Hemoglobin 26.7 PG (26-34); Mean Corpuscular Volume 77.9 fL (80-100); Monocytes Absolute Auto 400 /uL (0-900); Monocytes Percent Auto 4.9 % (3-14); Neutrophils Absolute Auto 6500 /uL (1500-7000); Neutrophils Percent Auto 74.2 % (50-75); Platelet Count 230 X10^3/uL (150-400); Red Blood Cell Count 4.41 X10^6/uL (4.0-5.2); Red Cell Distribution Width 14.2 % (11.6-14.8); White Blood Cell Count 8.7 X10^3/uL (4.5-11.0)
[2022-02-13 14:40] LABS: GTT (PREG) 1 Hour PP 50gm Dose 130 mg/dL (76-139)
[2022-02-13 17:33] LABS: HIV 1 & 2 Ab/Ag 4th Gen Combo NEGATIVE (NEGATIVE); Hep C Virus Ab w/Reflex Quant NEGATIVE s/c (NEGATIVE); Hepatitis B Surface Antigen NEGATIVE s/c (NEGATIVE); Rubella Antibody IgG 17.1 IU/mL (>15)
[2022-02-14 07:22] LABS: Varicella IgG Antibody 476 index (Immune >165)
[2022-02-14 08:22] LABS: RPR Screen Non Reactive (Non Reactive)
[2022-02-21 11:42] LABS: AFP, Serum 28.8 ng/mL (.); Calc Gestational Age EDD (.); Estriol, Free 1.19 ng/mL (.); Inhibin A, Dimeric 136.52 pg/mL (.); Maternal Ethnicity Other (.); Maternal Weight 192 lbs (.); Number of Fetuses No (.); OSBR Risk 1 IN 10000 (.); Results Report (.); Test Results *Screen Negative* (.); hCG, MoM 1.94 (.); hCG, Serum 51216 mIU/mL (.)
== END ==
PROVIDERS: PCP Family Medicine; Referring Provider Family Medicine; Visit Provider Family Medicine
DX: Z34.80 Encounter for supervision of other normal pregnancy, unspecified trimester (principal); Z86.32 Personal history of gestational diabetes
CPT/HCPCS: 36415; 80055; 81003; 82105; 82677; 82950; 84702; 86336; 86787; 86803; 86850; 86900; 86901; 87086; 87389

== ENCOUNTER → 2022-03-01 10:24 | Outpatient (CLI) | payer OTHER, SELFPAY ==
--- NOTE | 2022-03-01 10:24 | DI.US.S_ITS ---
PROCEDURE: US OB >= 14 WEEKS FETUS INDICATIONS: ANATOMY OUTSIDE/PRIOR DATING DATA: Last menstrual period (LMP): Unknown. LMP-based estimated date of delivery (GABRIELLE): Unknown. First dating scan (date and location): 12/23/2021. Estimated date of delivery (GABRIELLE) from first dating scan: 07/17/2022. The calculations are made using the ultrasound GABRIELLE of 07/17/2022. TECHNIQUE: Real-time scanning was performed of the fetus, with image documentation and biometric measurements. COMPARISON: [facility], OB >= 14 WEEKS FETUS, 12/31/2020, 9:57. FINDINGS: General: A single living intrauterine gestation is present. Presentation: Vertex. Placenta: Placental position is posterior , without previa. Amniotic fluid index: 10.9 cm, normal range is 5-24 cm. Single deepest vertical pocket is 4.4 cm. heart rate: 143 beats per minute. Maternal cervical canal: 5.1 cm long. Normal lower limit is 2.5 cm. biometrics: Biparietal diameter: 4.9 cm. 20 weeks 5 days. Head circumference: 17.2 cm. 19 weeks 5 days. Abdominal circumference: 14.1 cm. 19 weeks 3 days. Femur length: 3.6 cm. 21 weeks 3 days. Clinically estimated gestational age: N/a Composite gestational age from present scan: 20 weeks 2 days Estimated weight and percentile: 349 grams. 59th percentile. Anatomic survey: Neuro: Ventricles are non-dilated at less than 10 mm. Cisterna magna is normal at 3-11 mm. Cerebellum is normal in size and morphology. Nuchal skin fold: Normal at less than 6 mm between 14-21 weeks gestational age. Face: Nose and lips, facial profile are normal. Spine: No evidence for spina bifida. Heart: 4-chambered heart is present, with normal ventricular outflow tracts. Diaphragm: Diaphragm is intact. Stomach: Left-sided stomach is present. Kidneys: No hydronephrosis. Normal is less than 5 mm in 2nd trimester, less than 7 mm in 3rd trimester. Cord: 3-vessel cord has orthotopic insertion. Bladder: Normal in size. Extremities: All 4 extremities identified. IMPRESSION: 1. Single live intrauterine with a composite gestational age of 20 weeks 2 days. 2. anatomic survey is normal. We strive to produce accurate, complete, and clear reports of imaging services. To assist us in improving patient care, this report was composed using standard report templates and voice recognition software. Therefore, it may contain abnormal punctuation, insertions and/or omissions. Occasional wrong-word or sound-alike substitutions may occur. Though we review the report and make efforts to correct it, we do recommend that the report be read carefully in proper context to recognize any text inaccuracies. Dictated by: Blayne Bustamatne M.D. on 03/01/2022 at 13:01 Approved by: Blayne Bustamante M.D. on 03/01/2022 at 13:07
== END ==
PROVIDERS: PCP Family Medicine; Referring Provider Family Medicine; Visit Provider Family Medicine
DX: Z34.92 Encounter for supervision of normal pregnancy, unspecified, second trimester (principal); Z3A.20 20 weeks gestation of pregnancy
CPT/HCPCS: 76811

== ENCOUNTER → 2022-04-17 10:09 | Outpatient (CLI) | payer OTHER, SELFPAY ==
[2022-04-17 12:57] LABS: Add Manual Diff / Slide Review NO; Basophils Absolute Auto 0 /uL (0-100); Basophils Percent Auto 0.4 % (0-2); Eosinophils Absolute Auto 100 /uL (0-450); Eosinophils Percent Auto 0.9 % (2-4); Hematocrit 32.4 % (36-46); Hemoglobin 10.6 g/dL (12.0-16.0); Lymphocytes Absolute Auto 1900 /uL (1100-4500); Mean Corpuscular HGB Conc 32.8 % (30-36); Mean Corpuscular Hemoglobin 25.5 PG (26-34); Mean Corpuscular Volume 77.8 fL (80-100); Monocytes Absolute Auto 500 /uL (0-900); Monocytes Percent Auto 5.1 % (3-14); Neutrophils Absolute Auto 7300 /uL (1500-7000); Neutrophils Percent Auto 74.6 % (50-75); Platelet Count 249 X10^3/uL (150-400); Red Blood Cell Count 4.16 X10^6/uL (4.0-5.2); Red Cell Distribution Width 13.4 % (11.6-14.8); White Blood Cell Count 9.8 X10^3/uL (4.5-11.0)
[2022-04-17 13:16] LABS: GTT (PREG) 1 Hour PP 50gm Dose 86 mg/dL (76-139)
== END ==
PROVIDERS: PCP Family Medicine; Referring Provider Family Medicine; Visit Provider Family Medicine
DX: Z34.92 Encounter for supervision of normal pregnancy, unspecified, second trimester (principal); Z3A.26 26 weeks gestation of pregnancy
CPT/HCPCS: 36415; 82950; 85025

== ENCOUNTER → 2022-06-16 16:16 | Outpatient (CLI) | payer OTHER, SELFPAY ==
[2022-06-17 15:30] LABS: Strep Grp B PCR POS for Grp B Strep
== END ==
PROVIDERS: PCP Family Medicine; Visit Provider Family Medicine
DX: Z36.85 Encounter for antenatal screening for Streptococcus B (principal)
CPT/HCPCS: 87653

== ENCOUNTER 2022-06-27 14:35 | Outpatient (CLI) | payer OTHER, SELFPAY | END 2022-06-27 15:40 | disposition home or self-care (01) | LOC: OB 06-30 13:51 | PROVIDERS: PCP Family Medicine; Referring Provider Obstetrics & Gynecology; Visit Provider Obstetrics & Gynecology | DX: O36.8130 Decreased fetal movements, third trimester, not applicable or unspecified (principal); Z3A.38 38 weeks gestation of pregnancy | CPT/HCPCS: 59025; G0378; G0379 ==

== ENCOUNTER 2022-07-07 13:50 | Outpatient (CLI) | payer OTHER, SELFPAY ==
--- NOTE | 2022-07-07 14:45 | PM.OBTRLD ---
Visit Information Visit Information Date of evaluation: 07/07/22 Primary OB Provider: Jenn Martínez On-call OB Provider: Kasia Benitez Reason for Evaluation: Yes rupture of membranes Comments/Additional reasons for admission: 27-year-old at 38 weeks and 4 days gestation sent from clinic due to possible rupture of membranes. She has been leaking watery fluid for the last 2 days. No gushes but leaking has been persistent. She feels [place] contractions as well but nothing painful. Baby is active. She is scheduled for repeat on 07/10/22. Vital Signs Vital Signs: Temperature 36.5? 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 ) current occupational exposures/hazards: No yaz/christianity: L[employer] Day special yaz needs: No travel history: over 6 months ago seatbelt use: always water heater temp set < 120 deg: Yes working smoke detector in home: Yes fire extinguisher in home: Yes carbon monox detector in home: Yes firearms in home: No do you feel safe at home: Yes Smoking Status: Never smoker Tobacco: How many years used: 2 Smokeless tobacco user: dissolvable tobacco quit status: quit date established (2 years ago (Intake is 11/09/20)) second hand exposure: No alcohol intake: former (pre-prenancy : wine occasional use) substance use type: does not use during the past year weight has: other (fluctuates.) well-balanced diet: daily or most days daily servings fruits/ve-4 caffeine: Yes (occasional, aware of 200mg limit) Type(s) of exercise: walking frequency: daily duration: 30-45 minutes/day Evaluation Evaluation Baseline heart rate: 130 Variability: Moderate (11-25) monitor accelerations: Present Monitor Decelerations: Absent Uterine Contraction Intensity: Mild Category of Tracing: Reactive Non-invasive Membranes Rupture Test: negative Diagnosis, Plan/Disposition Final Diagnosis (1) 38 weeks gestation of : Status: Acute Plan/Disposition Plan: AmniSure negative. NST reactive. Follow-up as scheduled on 07/10/22 for repeat or return sooner as needed. OB Disposition: home
== END 2022-07-07 14:50 | disposition home or self-care (01) ==
LOC: LABOR 14:05 → OB 07-14 17:06
PROVIDERS: Referring Provider Family Medicine; Visit Provider Family Medicine
DX: Z03.71 Encounter for suspected problem with amniotic cavity and membrane ruled out (principal); O47.1 False labor at or after 37 completed weeks of gestation; Z3A.38 38 weeks gestation of pregnancy
CPT/HCPCS: 59025; 84112; G0378; G0379

== ENCOUNTER 2022-07-10 08:55 | Inpatient (IN) | payer OTHER, SELFPAY ==
[2022-07-10 09:02] VITALS: BP 121/72; PULSE 83; RESP 16; TEMP 36.7
[2022-07-10] MEDS: LACTATED RINGERS 1,000 ML 999 ML IV (09:15)
[2022-07-10 10:02] LABS: Basophils Absolute Auto 0 /uL (0-100); Basophils Percent Auto 0.5 % (0-2); Eosinophils Absolute Auto 0 /uL (0-450); Eosinophils Percent Auto 0.5 % (2-4); Hematocrit 29.4 % (36-46); Hemoglobin 9.5 g/dL (12.0-16.0); Lymphocytes Absolute Auto 1800 /uL (1100-4500); Lymphocytes Percent Auto 20.9 % (25-40); Mean Corpuscular HGB Conc 32.4 % (30-36); Mean Corpuscular Hemoglobin 22.3 PG (26-34); Monocytes Absolute Auto 500 /uL (0-900); Monocytes Percent Auto 5.7 % (3-14); Neutrophils Absolute Auto 6300 /uL (1500-7000); Neutrophils Percent Auto 72.4 % (50-75); Platelet Count 214 X10^3/uL (150-400); Red Blood Cell Count 4.26 X10^6/uL (4.0-5.2); Red Cell Distribution Width 15.4 % (11.6-14.8); White Blood Cell Count 8.7 X10^3/uL (4.5-11.0)
[2022-07-10 10:03] LABS: Add Manual Diff / Slide Review SLIDE REVIEW
[2022-07-10 10:06] VITALS: BP 116/68
--- NOTE | 2022-07-10 10:18 | P.HPOB_ITS ---
OB HPI Date/Time Date of admission: 07/10/22 Date Patient Seen: 07/10/22 Time Patient Seen: 11:17 History of Present Condition Chief complaint: Section GABRIELLE Calculator Estimated Delivery Date Method Current WG Current Estimate 07/17/22 Manual 39w 0d Final GABRIELLE - GLEN Other Estimates 07/17/22 Ultrasound #1 39w 0d Estimated Gestational Age (weeks): 39 : 2 Para: 1 care: good care, initiated at week # (13), number of visits (12) and pounds weight gain (11) Dating criteria OB: LMP confirmed by 1st trimester US Ultrasounds: normal 1st trimester US and normal mid trimester US Obstetrical complications: none Medical complications OB: none Indications Operative indications ( section): previous uterine surgery Preadmission Labs Last OB Lab Results: Blood Type A Positive 07/10/22 09:20 Antibody Screen Negative 07/10/22 09:20 Hematocrit 29.4 % (36-46) L 07/10/22 09:20 Hemoglobin 9.5 g/dL (12.0-16.0) L 07/10/22 09:20 Hepatitis B Surface Antigen Negative s/c (NEGATIVE) 02/13/22 12 :15 Hepatitis C Antibody Negative s/c (NEGATIVE) 02/13/22 12:15 Rubella Antibody 17.1 IU/mL (>15) 02/13/22 12:15 Varicella-Zoster IgG Antibody 476 index (Immune >165) 02/13/22 12:15 Glucose 1 Hour 86 mg/dL (76-139) 04/17/22 10:31 Group B Streptococcus (PCR) Pos for grp b strep H 06/16/22 16:1 6 -: Urine: negative -: PAP smear: Normal (2020) Genetic Screens: Quad screen: Normal External Labs -: Urine: negative Prior (ies) Past Pregnancies Del. Date GA/Weeks Labor Lgth Wt Sex Route Outcome Anesthesia Place Delv Breastfeed Preg Comp Name 05/16/21 39.5 7 lb 11.459 oz Female live - f ull term [facility] still as of 12/20 gestational diabetes Teddy burks Delivery Date: 05/16/21 Last Updated by: Kasia Benitez D.O. 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 ) current occupational exposures/hazards: No yaz/christian: Nondenominational special yaz needs: No travel history: over 6 months ago seatbelt use: always water heater temp set < 120 deg: Yes working smoke detector in home: Yes fire extinguisher in home: Yes carbon monox detector in home: Yes firearms in home: No do you feel safe at home: Yes Smoking Status: Never smoker Tobacco: How many years used: 2 Smokeless tobacco user: dissolvable tobacco quit status: quit date established (2 years ago (Intake is 11/09/20)) second hand exposure: No alcohol intake: former (pre-prenancy : wine occasional use) substance use type: does not use during the past year weight has: other (fluctuates.) well-balanced diet: daily or most days daily servings fruits/ve-4 caffeine: Yes (occasional, aware of 200mg limit) Type(s) of exercise: walking frequency: daily duration: 30-45 minutes/day Meds Home Medications and Allergies Home Medications Medication Instructions Recorded Confirmed Type prenat.vits,naina,gyy-rxcw-srnzq 1 tab PO DAILY 11/09/20 07/10/22 History Double Electric Breast Pump and #1 ea 04/10/22 07/10/22 Rx supplies Allergies Allergy/AdvReac Type Severity Reaction Status Date / Time No Known Drug Allergies Allergy Verified 07/07/22 13:20 OB Exam Narrative Exam Narrative: HEENT: No thyromegaly, no anterior cervical or supraclavicular lymphadenopathy. Lungs:Clear to auscultation bilaterally, no wheezes. Cardiovascular: Regular rate and rhythm, no murmurs, rubs, or gallops. Abdomen: Well-healed Pfannenstiel scar. No hepatosplenomegaly. No masses palpable. External genitalia: Normal Vagina: Normal Cervix: Normal Extremities: No edema Objective Labs 07/10/22 09:20 Labs: Laboratory Results - last 24 hr 07/10/22 09:20 WBC 8.7 RBC 4.26 Hgb 9.5 L Hct 29.4 L MCV 69.0 L MCH 22.3 L MCHC 32.4 RDW 15.4 H Plt Count 214 Neut % (Auto) 72.4 Lymph % (Auto) 20.9 L [place] % (Auto) 5.7 Eos % (Auto) 0.5 L Baso % (Auto) 0.5 Neut # (Auto) 6300 Lymph # (Auto) 1800 [place] # (Auto) 500 Eos # (Auto) 0 Baso # (Auto) 0 Assessment and Plan Assessment and Plan Assessment and Plan narrative: Assessment: 27-year-old 2 para 1 at 39 weeks gestation with a previous section Keloid scar Plan: Repeat low-transverse section and keloid scar revision The risks, benefits, and alternatives procedure were explained. The including bleeding infection, injury to the bowel, bladder, or ureters. She understands these risks and agrees to proceed. A full par Q was held and consent form was signed. Time Spent with Patient Total time spent with greater than 50% in coordination of care (as documented) at patient's floor/unit and/or counseling patient:: less than 15 minutes
--- NOTE | 2022-07-10 10:23 | PM.PREOP ---
Pre-operative Note COVID-19 Criteria for continued procedure: Non-surgical alternatives not available or appropriate per current SOC Interval Note History & Physical reviewed/Exam performed by Physician: Yes Changes to H&P: No H&P completed within 30 days and has changed as indicated here:: 07/10/22
[2022-07-10] MEDS: LACTATED RINGERS 1,000 ML 100 ML IV ×3 (10:26→15:56)
[2022-07-10 10:35] LABS: Hypochromasia 1+; Microcytosis 2+
[2022-07-10 10:36] LABS: Anisocytosis 1+
[2022-07-10] MEDS: CITRIC ACID/SODIUM CITRATE 15 ML SOLUTION 30 ML PO (11:15)
[2022-07-10] MEDS: CEFAZOLIN 2 GM/100 ML PREMIX 100 ML IV (11:35)
--- NOTE | 2022-07-10 12:26 | SUR.OPER ---
Supine on Padded OR bed, head on pillow, safety belt at thigh, arms secured on padded arm boards at <90 degrees abduction. Bump under right buttock. Legs uncrossed , gel pad placed between right posterior thigh and urinary catheter tubing, tape over blanket to lower legs.
--- NOTE | 2022-07-10 12:27 | SUR.OPER ---
Viable baby girl delivered at 12:05, placenta delivered. Placenta and cord blood tubes x2 given to L&D RN.
[2022-07-10] MEDS: TRIAMCINOLONE 40 MG/ML VIAL 10 MG IM (12:45)
[2022-07-10 12:52] VITALS: BP 96/50; PULSE 101; RESP 14; TEMP 36.6; O2SAT 100
--- NOTE | 2022-07-10 12:57 | PM.OBCS.1 ---
Operative Date/Time/Diagnoses Date of procedure: 07/10/22 Time of procedure: 12:57 Pre-op diagnosis: Previous C section Keloid scar 39 weeks gestation Post-op diagnosis: same Procedure & Clinicians Same procedure as scheduled: Yes Anesthesia Type: Spinal (with Duramorph) Operative Notes Findings: Live female infant in the AMBREEN presentation Nuchal cord x 1, loose Normal tubes and ovaries Keloid scar in the middle of the incision Closure Type: primary Specimen(s): cord blood and placenta Intraoperative meds administered: Duramorph, Ketorolac and Pitocin Applied: Catheter (to continuous drainage) Estimated Blood Loss (mL): 500 Blood products transfused: none Complications: none [place] Baby 1: Gender: Female Presentation: vertex Position: Right Occiput Anterior Placental Delivery Description: Expressed Cord Vessel Description: 3 Vessels, Nuchal Cord (x 1), Loose, Reduced and Clamped/Cut (after 1 minute) score (1 min): 7 score (5 min): 9 Post-operative Condition: stable Disposition: PACU Aftercare: routine postop
[2022-07-10 12:58] VITALS: BP 102/49; PULSE 88; RESP 20; TEMP 36.6; O2SAT 100
[2022-07-10 13:02] VITALS: BP 100/49; PULSE 84; RESP 15; TEMP 36.4; O2SAT 100
[2022-07-10 13:09] VITALS: BP 122/93; PULSE 103; RESP 17; TEMP 36.4; O2SAT 100
[2022-07-10] MEDS: diphenhydrAMINE 50 MG/ML VIAL 25 MG IV (16:04)
[2022-07-10] MEDS: ACETAMINOPHEN 325 MG TABLET 650 MG PO (20:20)
[2022-07-10] MEDS: KETOROLAC 30 MG/ML VIAL IV (20:20)
[2022-07-11] MEDS: KETOROLAC 30 MG/ML VIAL IV ×2 (02:32→09:01)
[2022-07-11] MEDS: ACETAMINOPHEN 325 MG TABLET 650 MG PO ×3 (02:32→14:53)
[2022-07-11 06:28] LABS: Hematocrit 24.9 % (36-46); Hemoglobin 8.1 g/dL (12.0-16.0)
[2022-07-11] MEDS: PRENATAL VIT,CALC/IRON/FOLIC 1 TABLET 1 TAB PO (09:01)
[2022-07-11] MEDS: DOCUSATE 100 MG CAPSULE PO (09:01)
[2022-07-11] MEDS: IBUPROFEN 600 MG TABLET PO (14:54)
== END 2022-07-11 16:07 | disposition home or self-care (01) | DRG 788 ==
PROVIDERS: Family Medicine; Admitting Provider Obstetrics & Gynecology; Referring Provider Obstetrics & Gynecology; Visit Provider Obstetrics & Gynecology
PROC: 10D00Z1 Extraction of Products of Conception, Low, Open Approach (ICD-10-PCS; CPT 59514; principal; 2022-07-10 10:00)
DX: O34.211 Maternal care for low transverse scar from previous cesarean delivery (principal); Z3A.39 39 weeks gestation of pregnancy; Z37.0 Single live birth; O99.824 Streptococcus B carrier state complicating childbirth; O99.892 Other specified diseases and conditions complicating childbirth; L91.0 Hypertrophic scar
CPT/HCPCS: 36415; 59050; 59510; 59514; 85014; 85018; 85025; 86850; 86900; 86901; J0690; J1200; J1885; J2274; J2405; J2590

== ENCOUNTER 2023-11-30 14:30 | Outpatient (RCR) | payer OTHER, SELFPAY ==
--- NOTE | 2023-09-14 19:23 | PT.OIE ---
Current Diagnoses Postural lordosis, lumbosacral region (09/14/23) Low back pain, unspecified (09/14/23) Muscle weakness (generalized) (09/14/23) Lower abdominal pain, unspecified (09/14/23) Unspecified urinary incontinence (09/14/23) Past Medical History (Last Reviewed 08/24/22 @ 15:08 by Kasia Benitez DO) Anxiety (~05/2020) Bronchitis Chlamydia (~2015) Chronic pelvic pain in female Constipation Depression (~05/2020) Frequent headaches (~08/2020) GDM, class A1 Infertility (~08/25/20) Infertility due to oligo-ovulation PCOS (polycystic ovarian syndrome) (~2016) Past Surgical History (Last Reviewed 08/24/22 @ 15:08 by Kasia Benitez DO) History of tonsillectomy (~03/2019) S/P [place] teeth extracted (~2019) Visit Care Team Role Provider Type Katy ANGEL Provider Primary Care Provider Non-Staff Specialty: Medical Address: Phone: Email: Armen Aguilar Attending Provider Non-Staff Family Provider Referring Provider Specialty: Medical Address: [address] [place] [address], [facility] Email: Physical Therapy Initial Evaluation PT-OP-A Visit Information Start: 09/13/23 18:29 Freq: Status: Active Protocol: Document 09/14/23 08:20 LRN (Rec: 09/14/23 09:46 LRN [id number]) Out-Patient Physical Therapy Visit Information Visit Information Visit Type Initial Evaluation Visit Start Time 08:20 Visit Stop Time 09:10 Visit Number 1 Evaluation Information Evaluation Date 09/14/23 Precautions Precautions Depression, back pain. PT-OP-B Current Condition Start: 09/13/23 18:29 Freq: Status: Active Protocol: Document 09/14/23 08:20 LRN (Rec: 09/14/23 09:46 LRN [id number]) Current Condition History of Current Condition Onset Date 2019 Current Complaints Urinary incontinece, leaks with urgency loose stool fluid . History of Current Condition Pt reports urinary leakage since she started a job that requires heavy lifting, then worsened with the of her daughter. (05/2021). Leaks with heavy lifting, squatting, sneezing, coughing too hard, sit-up, long walks and while at work. Prior Treatments and Tests None Future Testing and Treatments Planned None Developmental History Developmental History 2G, 2P. Dates of births: 2020, 07/2022 (ages 2, 3), both C-sections. First was unplanned , otherwise no complications with births. Treatment Goals Patient/Caregiver Goals Pt goal: control urinary leakage, with squatting, sneezing, coughing too hard, sit up, long walks, and at work. Personal Factors Other Personal Factors That May Effect Work related depression, back Therapy/Recovery pain from job/, headaches 2x/day lasting 5-10 minutes. PT-OP-C Subjective Start: 09/13/23 18:29 Freq: Status: Active Protocol: Document 09/14/23 08:20 LRN (Rec: 09/14/23 09:46 LRN [id number]) Patient Questionnaires Pelvic Pain and Urgency/Frequency Patient Symptom Scale Pelvic Pain Score 18 OP-PT Pain Assessment Pain Assessment Grid Paper Pain Assessment Grid Completed Yes Location Lower abdomen Pain Location Details Lower abdomen above pubic bone and scar Intensity 4 Scale Used Numeric (0 - 10) LB/hips Pain Location Details Across low back at sacral level and posterior hips. Intensity 5 Scale Used Numeric (0 - 10) Description Aching PT-OP-I Pelvic Floor Start: 09/13/23 18:29 Freq: Status: Active Protocol: Document 09/14/23 08:20 LRN (Rec: 09/14/23 09:46 LRN [id number]) Pelvic Floor Assessment Urine Urinary Symptoms Dysuria,Urge Sensation, Hesitancy,Falling Out Feeling/ Heavy Other Urinary Symptoms Small to large leakage. If having a urge, has pain to start urination. Trying to contol the urination causes pain. Leakage Cause Cough,Exercise,Lifting,Sneeze, Urge Other Leakage Causes Daughter crying. Leaks Per Day constant Voiding Frequency 8-10 Nocturia 2 Pads Used In 24 Hours 3 Urine Pad Type Panty Liner Bowel Bowel Symptoms Fecal Leakage,Uncontrolled Flatulence Bowel Movement Frequency 2x/day [place] Stool Chart Comments Stools 2-7 Pelvic Clock Pelvic Clock 12-3 Tenderness,Tightness Pelvic Clock 3-6 Tenderness,Tightness Pelvic Clock 6-9 Tenderness Pelvic Clock 9-12 Tenderness Pelvic Clock Other Tight at Pelvic Clock (PC) 6-7 Less tight PC 7-11 Most tender PC 5-7 Atrophy of R Obturator Internus. Prolapse Cystocele Grade 1 Perineal Descent Bearing Present Contraction Ability Voluntary Contraction Weak Voluntary Relaxation Weak Manual Muscle Testing Left 3 Manual Muscle Testing Right 3 Manual Muscle Testing Anterior 3 Manual Muscle Testing Posterior 3 Muscle Endurance (Seconds) 3 Number of Quick Contractions In 10 2 Seconds Comments Pelvic Floor Comments Dryness of external PF. Redness of Internal vaginal opening. PT-OP-J Posture/Palpation/Skin Start: 09/13/23 18:29 Freq: Status: Active Protocol: Document 09/14/23 08:20 LRN (Rec: 09/14/23 09:46 LRN [id number]) Posture Evaluation Position Standing Head/C-Spine Posture Forward Head L-Spine Posture Increased Lordosis Shoulder Posture (R) Elevated Arm Posture (L) Internally Rotated,(R) Internally Rotated Pelvis Posture Anteriorly Tilted Knee Posture (L) Genu Varus,(R) Genu Varus Comments Posture Comments R foot slightly supinates. Palpation Assessment Location Abdominal Scar Palpation Findings Tenderness Palpation Details Tender on outside ends of scar Abdomen Palpation Location DR Palpation Details No DR Lumbar Spine Palpation Location Spinous process, Lateral Facets & Transverse processes Palpation Details Tender with PA glides. Emigdio Gluteals Palpation Findings Tenderness Palpation Details Tighter on R than L. Sacrum Palpation Location Around Sacrum Palpation Findings Tenderness Palpation Details Sacrum L rotated PT-OP-K Range of Motion Start: 09/13/23 18:29 Freq: Status: Active Protocol: Document 09/14/23 08:20 LRN (Rec: 09/14/23 09:46 LRN [id number]) Lumbar Spine Range of Motion Lumbar Spine Active Degrees Testing Position Standing Flexion 90 Extension 10 Rotation Left 20 Rotation Right 40 Lateral Flexion Left 20 Lateral Flexion Right 10 Hip Goniometric Range of Motion Hip Right Passive Testing Position Supine Internal Rotation 35 External Rotation 70 Left Passive Testing Position Supine Internal Rotation 20 External Rotation 85 PT-OP-M Strength Start: 09/13/23 18:29 Freq: Status: Active Protocol: Document 09/14/23 08:20 LRN (Rec: 09/14/23 09:46 LRN [id number]) Trunk Strength Trunk Manual Muscle Testing Core Stabilization Loss of rotational core stability with MMT of LE's. Hip Strength Hip Manual Muscle Testing Right Flexion (L2) 3 Fair Extension (S1) 3 Fair Abduction 3 Fair Adduction 3 Fair External Rotation 3 Fair Internal Rotation 4+ Good+ Comments Strength is 5/5 except as indicated above. Left Adduction 3 Fair Internal Rotation 4+ Good+ Comments Strength is 5/5 except as indicated above. PT-OP-Q Treatments Start: 09/13/23 18:29 Freq: Status: Active Protocol: Document 09/14/23 08:20 LRN (Rec: 09/14/23 09:46 LRN [id number]) Therapeutic Exercises Supine Exercises Diaphragmatic Breathing Supine Exercise Name Deep Breathing training Reps/Minutes 4' Comments Cued for hand on chest and abdomen to coordinate breath proper mvmt Self-Care/Home Management Treatment Education Other Education Discussed results of evaluation, goals, and plan of care (POC) with pt, discussed attendance/cx/dns policy; pt agreeable to goals, attendance /cx/dns policy and POC. Discussed and educated pt in specifics for completion of in use of Bladder Diary and I/S in tracking for 1 week. Discussed use of 2 different diaries for tracking of bladder for next 7 days, requested pt use hourly diary and for notes use compressed daily diary.. Activities Self-Care/Home Management Activities Issued & reviewed HEP: Deep Breathing with awareness of PF movement. When PF movement noticed, pt do light reverse Kegel with inhale. PT-OP-T Assessment and Plan Start: 09/13/23 18:29 Freq: Status: Active Protocol: Document 09/14/23 08:20 LRN (Rec: 09/14/23 09:46 LRN [id number]) Physical Therapy Assessment Rehab Potential Rehabilitation Potential Good Evaluation Complexity Number of Personal Factors/Comorbidities 3 or More Number of Body Systems Impaired 4 or More Clinical Presentation at Evaluation Evolving Impairments Impairments Activity Tolerance,Functional Mobility,Pain,ROM,Soft Tissue Mobility,Strength,Transfers Goals Five Impairment Back/hip pain Short Term Goal (STG) Pt will be educated in proper body mechanics for lifting for her job. STG Duration 6 wks-10/26/23 Care Home Goal (LTG) Decrease back/hip pain to no greater than 1/10 at work. LTG Duration 12 wks-12/07/23 Four Impairment Decreased core strength Impairment Loss of core rotational stability with movement of LE' s. Short Term Goal (STG) Pt will be educated in proper standing posture and hip flexor stretching to be able to correct for lordosis with abdominal tightening. STG Duration 6 wks-10/26/23 Care Home Goal (LTG) Pt will be able to maintain core stability with lifting of LE or MMT of LE's. LTG Duration 12 wks-12/07/23 Three Impairment Lower abdominal pain rated 4/ 10 Short Term Goal (STG) Decrease tenderness of C- section scar to no greater than 1/10. STG Duration 6 wks-10/26/23 Care Home Goal (LTG) Eliminate lower abdominal pain also prior to urination. LTG Duration 12 wks-12/07/23 Two Impairment Urinary and stool fluid leakage from tight PF muscles & weakness of Kegels Impairment Quick contractions in 10 secs - 2x Long hold - 3 secs decreased contraction. Tight and tender PF muscles, worse at PF clock 5-7. Short Term Goal (STG) Pt will be able to relax the PF after contractions with improved number of contractions in 10 secs to 4- 5x. STG Duration 6 wks-10/26/23 [employer] Super[employer] Goal (LTG) Improve PF endurance with pt able to control urinary leakage with squatting, sneezing, forceful coughing, sit ups, long walks, and at work. LTG Duration 12 wks-12/07/23 One Impairment Pt lacks self care HEP Short Term Goal (STG) Pt will be educated in vulvar and genital care. STG Duration 6 wks-10/26/23 Care Home Goal (LTG) Pt will be educated in self care HEP of PF relaxation ex's , LB/core/hip strengthening and hip ROM ex's. LTG Duration 12 wks-12/07/23 Assessment Summary Assessment Pt is a 28 yo female who presents with urinary and interminttent stool fluid leakage due to a tight and tender PF, decreased hip IR & trunk mobility, decreased hip (R worse than L), decreased core strength, and chronic back pain. She is not able to relax her PF between contractions. The pt appears to have dry PF tissues and if not able to decrease PF tenderness, use of perhaps estrodial medication would probably be beneficial to improve her exernal and vaginal entry PF tissue health . Her chronic back pain will most likely prolong her rehabilitation process. Pt shows no signs of diastasis rectus. Pt will benefit from skilled phyical therapy to achieve the above stated goals . Physical Therapy Plan Frequency and Duration Duration of treatment (weeks) 12 Plan of Care Start Date 09/14/23 Plan of Care End Date 12/07/23 Therapeutic Interventions Therapeutic Interventions Home Exercise Program,Manual Therapy,Neuromuscular Re- education,Patient/Caregiver Education,Soft Tissue Mobilization,Taping, Therapeutic Activities, Therapeutic Exercises Modalities Biofeedback,Electric Stimulation Next Visit Focus/Plan Next Note Type Treatment Note Next Visit Plan Next: Review bladder diary and make recommendations as appropriate, review deep breathing and educate proper breathing with transfers and body mechanics w/reverse kegel . PF stretching with wand. Ex: PF & scar mobility stretching, Stretching: Hip IR's, Trunk L rot/R SB. Pt education proper vulvar and perineal care with handout issued. Manual: Sacral balancing then pelvic/core/hip strengthening . STM: Urachus & Round ligament. POC: Pt education, Manual therapy, STM, JMT, Biofeedback with vaginal sensor. Therapeutic Exercises, Therapeutic Activities, Neuromuscular Reeducation, Modalities, HEP.
--- NOTE | 2023-10-01 17:52 | PT.OTN ---
Current Diagnoses Postural lordosis, lumbosacral region (10/01/23) Low back pain, unspecified (10/01/23) Muscle weakness (generalized) (10/01/23) Lower abdominal pain, unspecified (10/01/23) Unspecified urinary incontinence (10/01/23) Physical Therapy Treatment Note PT-OP-A Visit Information Start: 09/13/23 18:29 Freq: Status: Active Protocol: Document 10/01/23 08:20 LRN (Rec: 10/01/23 08:28 LRN [id number]) Out-Patient Physical Therapy Visit Information Visit Information Visit Type Treatment Note Visit Start Time 08:20 Visit Stop Time 09:00 Visit Number 2 Evaluation Information Evaluation Date 09/14/23 Precautions Precautions Depression, back pain. PT-OP-B Current Condition Start: 09/13/23 18:29 Freq: Status: Active Protocol: Document 09/14/23 08:20 LRN (Rec: 09/14/23 09:46 LRN [id number]) Current Condition History of Current Condition Onset Date 2019 Current Complaints Urinary incontinece, leaks with urgency loose stool fluid . History of Current Condition Pt reports urinary leakage since she started a job that requires heavy lifting, then worsened with the of her daughter. (05/2021). Leaks with heavy lifting, squatting, sneezing, coughing too hard, sit-up, long walks and while at work. Prior Treatments and Tests None Future Testing and Treatments Planned None Developmental History Developmental History 2G, 2P. Dates of births: 2020, 07/2022 (ages 2, 3), both C-sections. First was unplanned , otherwise no complications with births. Treatment Goals Patient/Caregiver Goals Pt goal: control urinary leakage, with squatting, sneezing, coughing too hard, sit up, long walks, and at work. Personal Factors Other Personal Factors That May Effect Work related depression, back Therapy/Recovery pain from job/, headaches 2x/day lasting 5-10 minutes. PT-OP-C Subjective Start: 09/13/23 18:29 Freq: Status: Active Protocol: Document 10/01/23 08:20 LRN (Rec: 10/01/23 08:28 LRN [id number]) OP-PT Subjective Patient Comments Patient Comments Same. States she accidently threw her bladder diary away with children's old homework. PT-OP-I Pelvic Floor Start: 09/13/23 18:29 Freq: Status: Active Protocol: Document 09/14/23 08:20 LRN (Rec: 09/14/23 09:46 LRN [id number]) Pelvic Floor Assessment Urine Urinary Symptoms Dysuria,Urge Sensation, Hesitancy,Falling Out Feeling/ Heavy Other Urinary Symptoms Small to large leakage. If having a urge, has pain to start urination. Trying to contol the urination causes pain. Leakage Cause Cough,Exercise,Lifting,Sneeze, Urge Other Leakage Causes Daughter crying. Leaks Per Day constant Voiding Frequency 8-10 Nocturia 2 Pads Used In 24 Hours 3 Urine Pad Type Panty Liner Bowel Bowel Symptoms Fecal Leakage,Uncontrolled Flatulence Bowel Movement Frequency 2x/day [place] Stool Chart Comments Stools 2-7 Pelvic Clock Pelvic Clock 12-3 Tenderness,Tightness Pelvic Clock 3-6 Tenderness,Tightness Pelvic Clock 6-9 Tenderness Pelvic Clock 9-12 Tenderness Pelvic Clock Other Tight at Pelvic Clock (PC) 6-7 Less tight PC 7-11 Most tender PC 5-7 Atrophy of R Obturator Internus. Prolapse Cystocele Grade 1 Perineal Descent Bearing Present Contraction Ability Voluntary Contraction Weak Voluntary Relaxation Weak Manual Muscle Testing Left 3 Manual Muscle Testing Right 3 Manual Muscle Testing Anterior 3 Manual Muscle Testing Posterior 3 Muscle Endurance (Seconds) 3 Number of Quick Contractions In 10 2 Seconds Comments Pelvic Floor Comments Dryness of external PF. Redness of Internal vaginal opening. PT-OP-J Posture/Palpation/Skin Start: 09/13/23 18:29 Freq: Status: Active Protocol: Document 09/14/23 08:20 LRN (Rec: 09/14/23 09:46 LRN [id number]) Posture Evaluation Position Standing Head/C-Spine Posture Forward Head L-Spine Posture Increased Lordosis Shoulder Posture (R) Elevated Arm Posture (L) Internally Rotated,(R) Internally Rotated Pelvis Posture Anteriorly Tilted Knee Posture (L) Genu Varus,(R) Genu Varus Comments Posture Comments R foot slightly supinates. Palpation Assessment Location Abdominal Scar Palpation Findings Tenderness Palpation Details Tender on outside ends of scar Abdomen Palpation Location DR Palpation Details No DR Lumbar Spine Palpation Location Spinous process, Lateral Facets & Transverse processes Palpation Details Tender with PA glides. Emigdio Gluteals Palpation Findings Tenderness Palpation Details Tighter on R than L. Sacrum Palpation Location Around Sacrum Palpation Findings Tenderness Palpation Details Sacrum L rotated PT-OP-K Range of Motion Start: 09/13/23 18:29 Freq: Status: Active Protocol: Document 09/14/23 08:20 LRN (Rec: 09/14/23 09:46 LRN [id number]) Lumbar Spine Range of Motion Lumbar Spine Active Degrees Testing Position Standing Flexion 90 Extension 10 Rotation Left 20 Rotation Right 40 Lateral Flexion Left 20 Lateral Flexion Right 10 Hip Goniometric Range of Motion Hip Right Passive Testing Position Supine Internal Rotation 35 External Rotation 70 Left Passive Testing Position Supine Internal Rotation 20 External Rotation 85 PT-OP-M Strength Start: 09/13/23 18:29 Freq: Status: Active Protocol: Document 09/14/23 08:20 LRN (Rec: 09/14/23 09:46 LRN [id number]) Trunk Strength Trunk Manual Muscle Testing Core Stabilization Loss of rotational core stability with MMT of LE's. Hip Strength Hip Manual Muscle Testing Right Flexion (L2) 3 Fair Extension (S1) 3 Fair Abduction 3 Fair Adduction 3 Fair External Rotation 3 Fair Internal Rotation 4+ Good+ Comments Strength is 5/5 except as indicated above. Left Adduction 3 Fair Internal Rotation 4+ Good+ Comments Strength is 5/5 except as indicated above. PT-OP-Q Treatments Start: 09/13/23 18:29 Freq: Status: Active Protocol: Document 10/01/23 08:20 LRN (Rec: 10/01/23 08:28 LRN [id number]) Therapeutic Exercises Supine Exercises Piriformis stretch Supine Exercise Name Pillow under hips: Ankle over knee > KTC Side bilateral Reps/Minutes 6' Diaphragmatic Breathing Supine Exercise Name Deep Breathing training - DC'd due to LBP Reps/Minutes 2' Comments Cued for hand on chest and abdomen to coordinate breath proper mvmt Sitting Exercises L Trunk rot stretch Sitting Exercise Name L Trunk rot Side left Reps/Minutes 2' Comments Cued for L only until equal mobility reached Breath w/reverse Kegel Sitting Exercise Name Inhale w/Reverse Kegel. Reps/Minutes 2' Diaphragmatic Breathing Sitting Exercise Name Deep Breathing Training Hand on chest & on ribs. Reps/Minutes 12' Comments Cued to breath into the hips or ribs. Standing Exercises Trunk R SB Standing Exercise Name Arms overhead and SB right. Side right Reps/Minutes 2' Comments Cued for R only until equal mobility reached. Therapeutic Activity Therapeutic Activity Transfer training Name Sit<>supine log roll Reps/Minutes 8' Comments Phys & v cuing needed Self-Care/Home Management Treatment Education Patient Education Home Exercise Program Activities Self-Care/Home Management Activities Issued & reviewed HEP: Quad/ Psoas, Piriformis, (sup, sit, longsit), L trunk rot sit, R SB standing. PT-OP-T Assessment and Plan Start: 09/13/23 18:29 Freq: Status: Active Protocol: Document 10/01/23 08:20 LRN (Rec: 10/01/23 08:29 LRN [id number]) Physical Therapy Assessment Goals Five Impairment Back/hip pain Short Term Goal (STG) Pt will be educated in proper body mechanics for lifting for her job. STG Duration 6 wks-10/26/23 Fdc Goal (LTG) Decrease back/hip pain to no greater than 1/10 at work. LTG Duration 12 wks-12/07/23 Four Impairment Decreased core strength Impairment Loss of core rotational stability with movement of LE' s. Short Term Goal (STG) Pt will be educated in proper standing posture and hip flexor stretching to be able to correct for lordosis with abdominal tightening. 10/01/23: HEP issued: Supine hip flexor/quad stretching. STG Duration 6 wks-10/26/23 progressed (need educ standing posture, TA ex) Die Reamer Goal (LTG) Pt will be able to maintain core stability with lifting of LE or MMT of LE's. LTG Duration 12 wks-12/07/23 Three Impairment Lower abdominal pain rated 4/ 10 Short Term Goal (STG) Decrease tenderness of C- section scar to no greater than 1/10. STG Duration 6 wks-10/26/23 Die Reamer Goal (LTG) Eliminate lower abdominal pain also prior to urination. LTG Duration 12 wks-12/07/23 Two Impairment Urinary and stool fluid leakage from tight PF muscles & weakness of Kegels Impairment Quick contractions in 10 secs - 2x Long hold - 3 secs decreased contraction. Tight and tender PF muscles, worse at PF clock 5-7. Short Term Goal (STG) Pt will be able to relax the PF after contractions with improved number of contractions in 10 secs to 4- 5x. STG Duration 6 wks-10/26/23 Die Reamer Goal (LTG) Improve PF endurance with pt able to control urinary leakage with squatting, sneezing, forceful coughing, sit ups, long walks, and at work. LTG Duration 12 wks-12/07/23 One Impairment Pt lacks self care HEP Short Term Goal (STG) Pt will be educated in vulvar and genital care. STG Duration 6 wks-10/26/23 Fdc Goal (LTG) Pt will be educated in self care HEP of PF relaxation ex's , LB/core/hip strengthening and hip ROM ex's. 10/01/23: HEP: Quad/Psoas, Piriformis, (sup, sit, longsit ), L trunk rot sit, R SB standing. LTG Duration 12 wks-12/07/23 progressed 10/01/23 Assessment Summary Assessment 28 yo female w/urinary and intermittent stool fluid leakage w/tight and tender PF, decreased hip IR & trunk mobility, decreased hip (R worse than L), decreased core strength, and chronic back pain. Today she shows improved ability to do deep breathing after training, better in sit than supine and good understanding of hip and trunk mobility ex's. Physical Therapy Plan Frequency and Duration Frequency of Treatment 1x/Week Duration of treatment (weeks) 12 Plan of Care Start Date 09/14/23 Plan of Care End Date 12/07/23 Therapeutic Interventions Therapeutic Interventions Home Exercise Program,Manual Therapy,Neuromuscular Re- education,Patient/Caregiver Education,Soft Tissue Mobilization,Taping, Therapeutic Activities, Therapeutic Exercises Modalities Biofeedback,Electric Stimulation Next Visit Focus/Plan Next Note Type Treatment Note Next Visit Plan Next: Review hip & trunk stretches and bladder diary and make recommendations as appropriate, educate proper breathing with transfers and body mechanics w/reverse kegel . PF stretching with wand. Ex: PF & scar mobility stretching, Stretching: Hip IR's, Trunk L rot/R SB. Pt education proper vulvar and perineal care with handout issued. Manual: Sacral balancing then pelvic/core/hip strengthening . STM: Urachus & Round ligament. POC: Pt education, Manual therapy, STM, JMT, Biofeedback with vaginal sensor. Therapeutic Exercises, Therapeutic Activities, Neuromuscular Reeducation, Modalities, HEP.
--- NOTE | 2023-10-19 16:37 | PT.OTN ---
Current Diagnoses Postural lordosis, lumbosacral region (10/19/23) Low back pain, unspecified (10/19/23) Muscle weakness (generalized) (10/19/23) Lower abdominal pain, unspecified (10/19/23) Unspecified urinary incontinence (10/19/23) Physical Therapy Treatment Note PT-OP-A Visit Information Start: 09/13/23 18:29 Freq: Status: Active Protocol: Document 10/19/23 10:36 LRN (Rec: 10/19/23 11:20 LRN [id number]) Out-Patient Physical Therapy Visit Information Visit Information Visit Type Treatment Note Visit Start Time 10:36 Visit Stop Time 11:18 Visit Number 3 Evaluation Information Evaluation Date 09/14/23 Precautions Precautions Depression, back pain. PT-OP-B Current Condition Start: 09/13/23 18:29 Freq: Status: Active Protocol: Document 09/14/23 08:20 LRN (Rec: 09/14/23 09:46 LRN [id number]) Current Condition History of Current Condition Onset Date 2019 Current Complaints Urinary incontinece, leaks with urgency loose stool fluid . History of Current Condition Pt reports urinary leakage since she started a job that requires heavy lifting, then worsened with the of her daughter. (05/2021). Leaks with heavy lifting, squatting, sneezing, coughing too hard, sit-up, long walks and while at work. Prior Treatments and Tests None Future Testing and Treatments Planned None Developmental History Developmental History 2G, 2P. Dates of births: 2020, 07/2022 (ages 2, 3), both C-sections. First was unplanned , otherwise no complications with births. Treatment Goals Patient/Caregiver Goals Pt goal: control urinary leakage, with squatting, sneezing, coughing too hard, sit up, long walks, and at work. Personal Factors Other Personal Factors That May Effect Work related depression, back Therapy/Recovery pain from job/, headaches 2x/day lasting 5-10 minutes. PT-OP-C Subjective Start: 09/13/23 18:29 Freq: Status: Active Protocol: Document 10/19/23 10:36 LRN (Rec: 10/19/23 11:20 LRN [id number]) OP-PT Subjective Patient Comments Patient Comments Last session cx because had mensis and a lot of pain and a lot of bleeding. States she has to push with BM's and that is why she drinks a lot of fluids. PT-OP-I Pelvic Floor Start: 09/13/23 18:29 Freq: Status: Active Protocol: Document 09/14/23 08:20 LRN (Rec: 09/14/23 09:46 LRN [id number]) Pelvic Floor Assessment Urine Urinary Symptoms Dysuria,Urge Sensation, Hesitancy,Falling Out Feeling/ Heavy Other Urinary Symptoms Small to large leakage. If having a urge, has pain to start urination. Trying to contol the urination causes pain. Leakage Cause Cough,Exercise,Lifting,Sneeze, Urge Other Leakage Causes Daughter crying. Leaks Per Day constant Voiding Frequency 8-10 Nocturia 2 Pads Used In 24 Hours 3 Urine Pad Type Panty Liner Bowel Bowel Symptoms Fecal Leakage,Uncontrolled Flatulence Bowel Movement Frequency 2x/day [place] Stool Chart Comments Stools 2-7 Pelvic Clock Pelvic Clock 12-3 Tenderness,Tightness Pelvic Clock 3-6 Tenderness,Tightness Pelvic Clock 6-9 Tenderness Pelvic Clock 9-12 Tenderness Pelvic Clock Other Tight at Pelvic Clock (PC) 6-7 Less tight PC 7-11 Most tender PC 5-7 Atrophy of R Obturator Internus. Prolapse Cystocele Grade 1 Perineal Descent Bearing Present Contraction Ability Voluntary Contraction Weak Voluntary Relaxation Weak Manual Muscle Testing Left 3 Manual Muscle Testing Right 3 Manual Muscle Testing Anterior 3 Manual Muscle Testing Posterior 3 Muscle Endurance (Seconds) 3 Number of Quick Contractions In 10 2 Seconds Comments Pelvic Floor Comments Dryness of external PF. Redness of Internal vaginal opening. PT-OP-J Posture/Palpation/Skin Start: 09/13/23 18:29 Freq: Status: Active Protocol: Document 09/14/23 08:20 LRN (Rec: 09/14/23 09:46 LRN [id number]) Posture Evaluation Position Standing Head/C-Spine Posture Forward Head L-Spine Posture Increased Lordosis Shoulder Posture (R) Elevated Arm Posture (L) Internally Rotated,(R) Internally Rotated Pelvis Posture Anteriorly Tilted Knee Posture (L) Genu Varus,(R) Genu Varus Comments Posture Comments R foot slightly supinates. Palpation Assessment Location Abdominal Scar Palpation Findings Tenderness Palpation Details Tender on outside ends of scar Abdomen Palpation Location DR Palpation Details No DR Lumbar Spine Palpation Location Spinous process, Lateral Facets & Transverse processes Palpation Details Tender with PA glides. Emigdio Gluteals Palpation Findings Tenderness Palpation Details Tighter on R than L. Sacrum Palpation Location Around Sacrum Palpation Findings Tenderness Palpation Details Sacrum L rotated PT-OP-K Range of Motion Start: 09/13/23 18:29 Freq: Status: Active Protocol: Document 09/14/23 08:20 LRN (Rec: 09/14/23 09:46 LRN [id number]) Lumbar Spine Range of Motion Lumbar Spine Active Degrees Testing Position Standing Flexion 90 Extension 10 Rotation Left 20 Rotation Right 40 Lateral Flexion Left 20 Lateral Flexion Right 10 Hip Goniometric Range of Motion Hip Right Passive Testing Position Supine Internal Rotation 35 External Rotation 70 Left Passive Testing Position Supine Internal Rotation 20 External Rotation 85 PT-OP-M Strength Start: 09/13/23 18:29 Freq: Status: Active Protocol: Document 09/14/23 08:20 LRN (Rec: 09/14/23 09:46 LRN [id number]) Trunk Strength Trunk Manual Muscle Testing Core Stabilization Loss of rotational core stability with MMT of LE's. Hip Strength Hip Manual Muscle Testing Right Flexion (L2) 3 Fair Extension (S1) 3 Fair Abduction 3 Fair Adduction 3 Fair External Rotation 3 Fair Internal Rotation 4+ Good+ Comments Strength is 5/5 except as indicated above. Left Adduction 3 Fair Internal Rotation 4+ Good+ Comments Strength is 5/5 except as indicated above. PT-OP-Q Treatments Start: 09/13/23 18:29 Freq: Status: Active Protocol: Document 10/19/23 10:36 LRN (Rec: 10/19/23 11:20 LRN [id number]) Therapeutic Exercises Supine Exercises SKTC stretch Supine Exercise Name SKTC stretch review Reps/Minutes 3' Piriformis stretch Supine Exercise Name Pillow under hips: Ankle over knee > KTC Side bilateral Reps/Minutes 6' Sitting Exercises Diaphragmatic Breathing Sitting Exercise Name Deep Breathing Training Hand on chest & on ribs. Reps/Minutes 6' Comments Cued to do with 6 breaths Self-Care/Home Management Treatment Education Other Education Discussed extensively diet, and Bowel program, and finding her GI transit time with discussion of different options of foods to eat and when to eat. Discussed use of squatty potty and postioning for having BM. Educated pt in how to use deep breathing for having GM w /o pushing. Activities Self-Care/Home Management Activities Issued & reviewed HEP: Bowel massage. PT-OP-T Assessment and Plan Start: 09/13/23 18:29 Freq: Status: Active Protocol: Document 10/19/23 10:36 LRN (Rec: 10/19/23 11:20 LRN [id number]) Physical Therapy Assessment Goals Five Impairment Back/hip pain Short Term Goal (STG) Pt will be educated in proper body mechanics for lifting for her job. STG Duration 6 wks-10/26/23 Domestic Laundry Worker Goal (LTG) Decrease back/hip pain to no greater than 1/10 at work. LTG Duration 12 wks-12/07/23 Four Impairment Decreased core strength Impairment Loss of core rotational stability with movement of LE' s. Short Term Goal (STG) Pt will be educated in proper standing posture and hip flexor stretching to be able to correct for lordosis with abdominal tightening. 10/01/23: HEP issued: Supine hip flexor/quad stretching. STG Duration 6 wks-10/26/23 progressed (need educ standing posture, TA ex) Domestic Laundry Worker Goal (LTG) Pt will be able to maintain core stability with lifting of LE or MMT of LE's. LTG Duration 12 wks-12/07/23 Three Impairment Lower abdominal pain rated 4/ 10 Short Term Goal (STG) Decrease tenderness of C- section scar to no greater than 1/10. STG Duration 6 wks-10/26/23 Domestic Laundry Worker Goal (LTG) Eliminate lower abdominal pain also prior to urination. LTG Duration 12 wks-12/07/23 Two Impairment Urinary and stool fluid leakage from tight PF muscles & weakness of Kegels Impairment Quick contractions in 10 secs - 2x Long hold - 3 secs decreased contraction. Tight and tender PF muscles, worse at PF clock 5-7. Short Term Goal (STG) Pt will be able to relax the PF after contractions with improved number of contractions in 10 secs to 4- 5x. STG Duration 6 wks-10/26/23 Domestic Laundry Worker Goal (LTG) Improve PF endurance with pt able to control urinary leakage with squatting, sneezing, forceful coughing, sit ups, long walks, and at work. LTG Duration 12 wks-12/07/23 One Impairment Pt lacks self care HEP Short Term Goal (STG) Pt will be educated in vulvar and genital care. STG Duration 6 wks-10/26/23 Domestic Laundry Worker Goal (LTG) Pt will be educated in self care HEP of PF relaxation ex's , LB/core/hip strengthening and hip ROM ex's. 10/01/23: HEP: Quad/Psoas, Piriformis, (sup, sit, longsit ), L trunk rot sit, R SB standing. LTG Duration 12 wks-12/07/23 progressed 10/01/23 Assessment Summary Assessment 28 yo female w/mixed UI, cytocele, and intermittent stool fluid leakage w/tight & tender PF (hx of 2 deliveries), decreased core strength, trunk & hip mobility (IR-R>L) and chronic back pain. Today after review of bladder diary, pt shows good hydration levels, normal times btn voids, and normal urinary times. She has symptoms of urinary leakage, and bowel leakage noticed during meals. She moderate amount of leakage due to PF weakness. She shows much improved ability to perform deep breathing although a little fast; therefore cued to do 6 sec breaths. Physical Therapy Plan Frequency and Duration Frequency of Treatment 1x/Week Duration of treatment (weeks) 12 Plan of Care Start Date 09/14/23 Plan of Care End Date 12/07/23 Next Visit Focus/Plan Next Note Type Treatment Note Next Visit Plan Next: Review hip & trunk stretches add scar mob & ?K- tape, educate proper breathing with transfers and body mechanics w/reverse kegel for PF tightness. PF stretching with wand. Pt education proper vulvar and perineal care with handout issued, educated in proper standing posture, educated in proper body mechanics for lifting for her job. Manual: PF & scar mobility stretching, Stretching: Hip IR's, Trunk L rot/R SB. Manual: Sacral balancing then pelvic/core/hip strengthening , Urachus & Round ligament. EX: hip flexor stretching POC: Pt education, Manual therapy, STM, JMT, Biofeedback with vaginal sensor. Therapeutic Exercises, Therapeutic Activities, Neuromuscular Reeducation, Modalities, HEP.
--- NOTE | 2023-11-23 15:55 | PT.OTN ---
Current Diagnoses Postural lordosis, lumbosacral region (11/23/23) Low back pain, unspecified (11/23/23) Muscle weakness (generalized) (11/23/23) Lower abdominal pain, unspecified (11/23/23) Unspecified urinary incontinence (11/23/23) Physical Therapy Treatment Note PT-OP-A Visit Information Start: 09/13/23 18:29 Freq: Status: Active Protocol: Document 11/23/23 14:35 LRN (Rec: 11/23/23 15:42 LRN [id number]) Out-Patient Physical Therapy Visit Information Visit Information Visit Type Treatment Note Visit Start Time 14:35 Visit Stop Time 15:22 Visit Number 4 Evaluation Information Evaluation Date 09/14/23 Precautions Precautions Depression, back pain. PT-OP-B Current Condition Start: 09/13/23 18:29 Freq: Status: Active Protocol: Document 09/14/23 08:20 LRN (Rec: 09/14/23 09:46 LRN [id number]) Current Condition History of Current Condition Onset Date 2019 Current Complaints Urinary incontinece, leaks with urgency loose stool fluid . History of Current Condition Pt reports urinary leakage since she started a job that requires heavy lifting, then worsened with the of her daughter. (05/2021). Leaks with heavy lifting, squatting, sneezing, coughing too hard, sit-up, long walks and while at work. Prior Treatments and Tests None Future Testing and Treatments Planned None Developmental History Developmental History 2G, 2P. Dates of births: 2020, 07/2022 (ages 2, 3), both C-sections. First was unplanned , otherwise no complications with births. Treatment Goals Patient/Caregiver Goals Pt goal: control urinary leakage, with squatting, sneezing, coughing too hard, sit up, long walks, and at work. Personal Factors Other Personal Factors That May Effect Work related depression, back Therapy/Recovery pain from job/, headaches 2x/day lasting 5-10 minutes. PT-OP-C Subjective Start: 09/13/23 18:29 Freq: Status: Active Protocol: Document 11/23/23 14:35 LRN (Rec: 11/23/23 15:42 LRN [id number]) OP-PT Subjective Patient Comments Patient Comments States her scar is sore on the ends. PT-OP-I Pelvic Floor Start: 09/13/23 18:29 Freq: Status: Active Protocol: Document 09/14/23 08:20 LRN (Rec: 09/14/23 09:46 LRN [id number]) Pelvic Floor Assessment Urine Urinary Symptoms Dysuria,Urge Sensation, Hesitancy,Falling Out Feeling/ Heavy Other Urinary Symptoms Small to large leakage. If having a urge, has pain to start urination. Trying to contol the urination causes pain. Leakage Cause Cough,Exercise,Lifting,Sneeze, Urge Other Leakage Causes Daughter crying. Leaks Per Day constant Voiding Frequency 8-10 Nocturia 2 Pads Used In 24 Hours 3 Urine Pad Type Panty Liner Bowel Bowel Symptoms Fecal Leakage,Uncontrolled Flatulence Bowel Movement Frequency 2x/day [place] Stool Chart Comments Stools 2-7 Pelvic Clock Pelvic Clock 12-3 Tenderness,Tightness Pelvic Clock 3-6 Tenderness,Tightness Pelvic Clock 6-9 Tenderness Pelvic Clock 9-12 Tenderness Pelvic Clock Other Tight at Pelvic Clock (PC) 6-7 Less tight PC 7-11 Most tender PC 5-7 Atrophy of R Obturator Internus. Prolapse Cystocele Grade 1 Perineal Descent Bearing Present Contraction Ability Voluntary Contraction Weak Voluntary Relaxation Weak Manual Muscle Testing Left 3 Manual Muscle Testing Right 3 Manual Muscle Testing Anterior 3 Manual Muscle Testing Posterior 3 Muscle Endurance (Seconds) 3 Number of Quick Contractions In 10 2 Seconds Comments Pelvic Floor Comments Dryness of external PF. Redness of Internal vaginal opening. PT-OP-J Posture/Palpation/Skin Start: 09/13/23 18:29 Freq: Status: Active Protocol: Document 09/14/23 08:20 LRN (Rec: 09/14/23 09:46 LRN [id number]) Posture Evaluation Position Standing Head/C-Spine Posture Forward Head L-Spine Posture Increased Lordosis Shoulder Posture (R) Elevated Arm Posture (L) Internally Rotated,(R) Internally Rotated Pelvis Posture Anteriorly Tilted Knee Posture (L) Genu Varus,(R) Genu Varus Comments Posture Comments R foot slightly supinates. Palpation Assessment Location Abdominal Scar Palpation Findings Tenderness Palpation Details Tender on outside ends of scar Abdomen Palpation Location DR Palpation Details No DR Lumbar Spine Palpation Location Spinous process, Lateral Facets & Transverse processes Palpation Details Tender with PA glides. Emigdio Gluteals Palpation Findings Tenderness Palpation Details Tighter on R than L. Sacrum Palpation Location Around Sacrum Palpation Findings Tenderness Palpation Details Sacrum L rotated PT-OP-K Range of Motion Start: 09/13/23 18:29 Freq: Status: Active Protocol: Document 09/14/23 08:20 LRN (Rec: 09/14/23 09:46 LRN [id number]) Lumbar Spine Range of Motion Lumbar Spine Active Degrees Testing Position Standing Flexion 90 Extension 10 Rotation Left 20 Rotation Right 40 Lateral Flexion Left 20 Lateral Flexion Right 10 Hip Goniometric Range of Motion Hip Right Passive Testing Position Supine Internal Rotation 35 External Rotation 70 Left Passive Testing Position Supine Internal Rotation 20 External Rotation 85 PT-OP-M Strength Start: 09/13/23 18:29 Freq: Status: Active Protocol: Document 09/14/23 08:20 LRN (Rec: 09/14/23 09:46 LRN [id number]) Trunk Strength Trunk Manual Muscle Testing Core Stabilization Loss of rotational core stability with MMT of LE's. Hip Strength Hip Manual Muscle Testing Right Flexion (L2) 3 Fair Extension (S1) 3 Fair Abduction 3 Fair Adduction 3 Fair External Rotation 3 Fair Internal Rotation 4+ Good+ Comments Strength is 5/5 except as indicated above. Left Adduction 3 Fair Internal Rotation 4+ Good+ Comments Strength is 5/5 except as indicated above. PT-OP-Q Treatments Start: 09/13/23 18:29 Freq: Status: Active Protocol: Document 11/23/23 14:35 LRN (Rec: 11/23/23 15:42 LRN [id number]) Therapeutic Exercises Supine Exercises SKTC stretch Supine Exercise Name SKTC stretch review Reps/Minutes 3' Comments Cued for awareness of hip & PF stretch Piriformis stretch Supine Exercise Name Ankle over knee > KTC Side bilateral Reps/Minutes 6' Manual Therapy Treatment Soft Tissue Mobilization Sacral balancing Body Location Sacrum, Ileums Comments L Sacral sulcus infer glide x 2, L Sacral Sulcus PA glide x 2. L sacral shear x 2, R CHRISTINE and Ischial Tub PA glide 6 pt sacral balancing x 1 Pubic Rami superior glide L Self-Care/Home Management Treatment Education Other Education Discussed BM program and how to better eliminate with an urge and reasons for not holding off on having BM until urgent. Anatomy briefly explained. PT-OP-T Assessment and Plan Start: 09/13/23 18:29 Freq: Status: Active Protocol: Document 11/23/23 14:35 LRN (Rec: 11/23/23 15:42 LRN [id number]) Physical Therapy Assessment Goals Five Impairment Back/hip pain Short Term Goal (STG) Pt will be educated in proper body mechanics for lifting for her job. STG Duration 6 wks-10/26/23 Prison Goal (LTG) Decrease back/hip pain to no greater than 1/10 at work. LTG Duration 12 wks-12/07/23 Four Impairment Decreased core strength Impairment Loss of core rotational stability with movement of LE' s. Short Term Goal (STG) Pt will be educated in proper standing posture and hip flexor stretching to be able to correct for lordosis with abdominal tightening. 10/01/23: HEP issued: Supine hip flexor/quad stretching. STG Duration wks-10/26/23 progressed (need educ standing posture, TA ex) Campaign Management Senior Manager Goal (LTG) Pt will be able to maintain core stability with lifting of LE or MMT of LE's. LTG Duration 12 wks-12/07/23 Three Impairment Lower abdominal pain rated 4/ 10 Short Term Goal (STG) Decrease tenderness of C- section scar to no greater than 1/10. STG Duration 6 wks-10/26/23 Prison Goal (LTG) Eliminate lower abdominal pain also prior to urination. LTG Duration 12 wks-12/07/23 Two Impairment Urinary and stool fluid leakage from tight PF muscles & weakness of Kegels Impairment Quick contractions in 10 secs - 2x Long hold - 3 secs decreased contraction. Tight and tender PF muscles, worse at PF clock 5-7. Short Term Goal (STG) Pt will be able to relax the PF after contractions with improved number of contractions in 10 secs to 4- 5x. STG Duration 6 wks-10/26/23 Prison Goal (LTG) Improve PF endurance with pt able to control urinary leakage with squatting, sneezing, forceful coughing, sit ups, long walks, and at work. LTG Duration 12 wks-12/07/23 One Impairment Pt lacks self care HEP Short Term Goal (STG) Pt will be educated in vulvar and genital care. STG Duration 6 wks-10/26/23 Campaign Management Senior Manager Goal (LTG) Pt will be educated in self care HEP of PF relaxation ex's , LB/core/hip strengthening and hip ROM ex's. 10/01/23: HEP: Quad/Psoas, Piriformis, (sup, sit, longsit ), L trunk rot sit, R SB standing. 11/23/23: I/S pt to equal WB through legs after sacral balancing. LTG Duration 12 wks-12/07/23 progressed 11/23/23 Assessment Summary Assessment 28 yo female w/mixed UI ( normal urine times and times btn voids), cytocele, and intermittent stool fluid leakage w/tight & tender PF ( hx of 2 deliveries), decreased core strength, trunk & hip mobility (IR-R>L) and chronic back pain. Today, she has stiffness/discomfort of her L SIJ with reduction of pain/stiffness after treatment. Pt urged to ice to LB as needed for pain. Physical Therapy Plan Frequency and Duration Frequency of Treatment 1x/Week Duration of treatment (weeks) 12 Plan of Care Start Date 09/14/23 Plan of Care End Date 12/07/23 Next Visit Focus/Plan Next Note Type Treatment Note Next Visit Plan Next: Assess response to sacral balancing; Review trunk stretches; assess response to K-tape on scar & do scar mob as needed; PF stretching with wand; educate proper breathing with transfers and body mechanics w /reverse kegel for PF tightness. Pt education proper vulvar and perineal care with handout issued, educated in proper standing posture, educated in proper body mechanics for lifting for her job. Manual: PF & scar mobility stretching, Stretching: Hip IR's, Trunk L rot/R SB. Manual: Sacral balancing then pelvic/core/hip strengthening , Urachus & Round ligament. EX: hip flexor stretching POC: Pt education, Manual therapy, STM, JMT, Biofeedback with vaginal sensor. Therapeutic Exercises, Therapeutic Activities, Neuromuscular Reeducation, Modalities, HEP.
--- NOTE | 2023-11-30 15:40 | PT.OTN ---
Current Diagnoses Postural lordosis, lumbosacral region (11/30/23) Low back pain, unspecified (11/30/23) Muscle weakness (generalized) (11/30/23) Lower abdominal pain, unspecified (11/30/23) Unspecified urinary incontinence (11/30/23) Physical Therapy Treatment Note PT-OP-A Visit Information Start: 09/13/23 18:29 Freq: Status: Active Protocol: Document 11/30/23 14:36 LRN (Rec: 11/30/23 15:36 LRN [id number]) Out-Patient Physical Therapy Visit Information Visit Information Visit Type Treatment Note Visit Note UNSTACKER [place] [place] shadowed treatment w/permission of patient. Visit Start Time 14:36 Visit Stop Time 15:12 Visit Number 5 PT-OP-B Current Condition Start: 09/13/23 18:29 Freq: Status: Active Protocol: Document 09/14/23 08:20 LRN (Rec: 09/14/23 09:46 LRN [id number]) Current Condition History of Current Condition Onset Date 2019 Current Complaints Urinary incontinece, leaks with urgency loose stool fluid . History of Current Condition Pt reports urinary leakage since she started a job that requires heavy lifting, then worsened with the of her daughter. (05/2021). Leaks with heavy lifting, squatting, sneezing, coughing too hard, sit-up, long walks and while at work. Prior Treatments and Tests None Future Testing and Treatments Planned None Developmental History Developmental History 2G, 2P. Dates of births: 2020, 07/2022 (ages 2, 3), both C-sections. First was unplanned , otherwise no complications with births. Treatment Goals Patient/Caregiver Goals Pt goal: control urinary leakage, with squatting, sneezing, coughing too hard, sit up, long walks, and at work. Personal Factors Other Personal Factors That May Effect Work related depression, back Therapy/Recovery pain from job/, headaches 2x/day lasting 5-10 minutes. PT-OP-C Subjective Start: 09/13/23 18:29 Freq: Status: Active Protocol: Document 11/30/23 14:36 LRN (Rec: 11/30/23 15:36 LRN [id number]) OP-PT Subjective Patient Comments Patient Comments Pt is 1.5 yrs post . Still breast feeding. States after last session her hips felt more level but went to work and return to being off. K-tape was helpful in supporting the scar area. Back pain rated 5/10 worse today, carrying back pack made it not feel well. PT-OP-I Pelvic Floor Start: 09/13/23 18:29 Freq: Status: Active Protocol: Document 09/14/23 08:20 LRN (Rec: 09/14/23 09:46 LRN [id number]) Pelvic Floor Assessment Urine Urinary Symptoms Dysuria,Urge Sensation, Hesitancy,Falling Out Feeling/ Heavy Other Urinary Symptoms Small to large leakage. If having a urge, has pain to start urination. Trying to contol the urination causes pain. Leakage Cause Cough,Exercise,Lifting,Sneeze, Urge Other Leakage Causes Daughter crying. Leaks Per Day constant Voiding Frequency 8-10 Nocturia 2 Pads Used In 24 Hours 3 Urine Pad Type Panty Liner Bowel Bowel Symptoms Fecal Leakage,Uncontrolled Flatulence Bowel Movement Frequency 2x/day [place] Stool Chart Comments Stools 2-7 Pelvic Clock Pelvic Clock 12-3 Tenderness,Tightness Pelvic Clock 3-6 Tenderness,Tightness Pelvic Clock 6-9 Tenderness Pelvic Clock 9-12 Tenderness Pelvic Clock Other Tight at Pelvic Clock (PC) 6-7 Less tight PC 7-11 Most tender PC 5-7 Atrophy of R Obturator Internus. Prolapse Cystocele Grade 1 Perineal Descent Bearing Present Contraction Ability Voluntary Contraction Weak Voluntary Relaxation Weak Manual Muscle Testing Left 3 Manual Muscle Testing Right 3 Manual Muscle Testing Anterior 3 Manual Muscle Testing Posterior 3 Muscle Endurance (Seconds) 3 Number of Quick Contractions In 10 2 Seconds Comments Pelvic Floor Comments Dryness of external PF. Redness of Internal vaginal opening. PT-OP-J Posture/Palpation/Skin Start: 09/13/23 18:29 Freq: Status: Active Protocol: Document 09/14/23 08:20 LRN (Rec: 09/14/23 09:46 LRN [id number]) Posture Evaluation Position Standing Head/C-Spine Posture Forward Head L-Spine Posture Increased Lordosis Shoulder Posture (R) Elevated Arm Posture (L) Internally Rotated,(R) Internally Rotated Pelvis Posture Anteriorly Tilted Knee Posture (L) Genu Varus,(R) Genu Varus Comments Posture Comments R foot slightly supinates. Palpation Assessment Location Abdominal Scar Palpation Findings Tenderness Palpation Details Tender on outside ends of scar Abdomen Palpation Location DR Palpation Details No DR Lumbar Spine Palpation Location Spinous process, Lateral Facets & Transverse processes Palpation Details Tender with PA glides. Emigdio Gluteals Palpation Findings Tenderness Palpation Details Tighter on R than L. Sacrum Palpation Location Around Sacrum Palpation Findings Tenderness Palpation Details Sacrum L rotated PT-OP-K Range of Motion Start: 09/13/23 18:29 Freq: Status: Active Protocol: Document 09/14/23 08:20 LRN (Rec: 09/14/23 09:46 LRN [id number]) Lumbar Spine Range of Motion Lumbar Spine Active Degrees Testing Position Standing Flexion 90 Extension 10 Rotation Left 20 Rotation Right 40 Lateral Flexion Left 20 Lateral Flexion Right 10 Hip Goniometric Range of Motion Hip Right Passive Testing Position Supine Internal Rotation 35 External Rotation 70 Left Passive Testing Position Supine Internal Rotation 20 External Rotation 85 PT-OP-M Strength Start: 09/13/23 18:29 Freq: Status: Active Protocol: Document 09/14/23 08:20 LRN (Rec: 09/14/23 09:46 LRN [id number]) Trunk Strength Trunk Manual Muscle Testing Core Stabilization Loss of rotational core stability with MMT of LE's. Hip Strength Hip Manual Muscle Testing Right Flexion (L2) 3 Fair Extension (S1) 3 Fair Abduction 3 Fair Adduction 3 Fair External Rotation 3 Fair Internal Rotation 4+ Good+ Comments Strength is 5/5 except as indicated above. Left Adduction 3 Fair Internal Rotation 4+ Good+ Comments Strength is 5/5 except as indicated above. PT-OP-Q Treatments Start: 09/13/23 18:29 Freq: Status: Active Protocol: Document 11/30/23 14:36 LRN (Rec: 11/30/23 15:36 LRN [id number]) Therapeutic Exercises Supine Exercises SKTC stretch Side bilateral Reps/Minutes 10SH x3 reps (5-10 reps home) Piriformis stretch Side bilateral Reps/Minutes 10SH x3 reps (5-10 reps home) Sitting Exercises L Trunk rot stretch Sitting Exercise Name L Trunk rot Side left Reps/Minutes 2' Comments Cued for L only until equal mobility reached Standing Exercises Trunk R SB Standing Exercise Name Arms overhead and SB right ( stretch L) Side right Reps/Minutes 2' (10SH x10) Comments Cued for R only until equal mobility reached. Manual Therapy Treatment Soft Tissue Mobilization pelvic floor Body Location trigger point Mobilization Type Trigger Point Release Intensity/Depth Superficial Body Position Hooklying Comments 1-11 o'clock gentle pressure til muscle relaxes, ed use wand home (provided wand). most sensitive at 5 o'clock & L lateral wall. Taping K-tape to SCar Body Location scar Treatment Focus Scar mobilization Type of Tape Kinesio Tape Comments manual application wavy with ed self carryover use mirror see how therapist applied. Pt I/S in safe and proper removal of K-tape on 5th day and verbal review of best way to remove K-tape. Pt issued two strips for home use with pt agreeable to wear no more than 5 days, and removal of tape properly Self-Care/Home Management Treatment Education Other Education Education verbal vulvar care, Educated pt in use of wand for self PF stretching; superficial to deeper with stretching of PF clock and that pt could do portion of clock at a time. I/S pt to do TrP treatment to PF using wand; hold/deep breathing, and breathwork with transfer sup>sit. Activities Self-Care/Home Management Activities Issued hand out vular care PT-OP-T Assessment and Plan Start: 09/13/23 18:29 Freq: Status: Active Protocol: Document 11/30/23 14:36 LRN (Rec: 11/30/23 15:36 LRN [id number]) Physical Therapy Assessment Goals Five Impairment Back/hip pain Short Term Goal (STG) Pt will be educated in proper body mechanics for lifting for her job. STG Duration 6 wks-10/26/23 Fpc Goal (LTG) Decrease back/hip pain to no greater than 1/10 at work. LTG Duration 12 wks-12/07/23 Four Impairment Decreased core strength Impairment Loss of core rotational stability with movement of LE' s. Short Term Goal (STG) Pt will be educated in proper standing posture and hip flexor stretching to be able to correct for lordosis with abdominal tightening. 10/01/23: HEP issued: Supine hip flexor/quad stretching. STG Duration 6 wks-10/26/23 progressed (need educ standing posture, TA ex) Insole Rasper Goal (LTG) Pt will be able to maintain core stability with lifting of LE or MMT of LE's. LTG Duration 12 wks-12/07/23 Three Impairment Lower abdominal pain rated 4/ 10 Short Term Goal (STG) Decrease tenderness of C- section scar to no greater than 1/10. STG Duration 6 wks-10/26/23 Insole Rasper Goal (LTG) Eliminate lower abdominal pain also prior to urination. LTG Duration 12 wks-12/07/23 Two Impairment Urinary and stool fluid leakage from tight PF muscles & weakness of Kegels Impairment Quick contractions in 10 secs - 2x Long hold - 3 secs decreased contraction. Tight and tender PF muscles, worse at PF clock 5-7. Short Term Goal (STG) Pt will be able to relax the PF after contractions with improved number of contractions in 10 secs to 4- 5x. STG Duration 6 wks-10/26/23 Insole Rasper Goal (LTG) Improve PF endurance with pt able to control urinary leakage with squatting, sneezing, forceful coughing, sit ups, long walks, and at work. LTG Duration 12 wks-12/07/23 One Impairment Pt lacks self care HEP Short Term Goal (STG) Pt will be educated in vulvar and genital care. STG Duration 6 wks-10/26/23 (11/30/23: MET GOAL) Insole Rasper Goal (LTG) Pt will be educated in self care HEP of PF relaxation ex's , LB/core/hip strengthening and hip ROM ex's. 10/01/23: HEP: Quad/Psoas, Piriformis, (sup, sit, longsit ), L trunk rot sit, R SB standing. 11/23/23: I/S pt to equal WB through legs after sacral balancing. LTG Duration 12 wks-12/07/23 progressed 11/23/23 Assessment Summary Assessment 28 yo female w/mixed UI ( normal urine times and times btn voids), cytocele, and intermittent stool fluid leakage w/tight & tender PF ( hx of 2 deliveries), decreased core strength, trunk & hip mobility (IR-R>L) and chronic back pain. Today pt's LB is more painful ( notable lordosis) rated 5/10. Fair recall of trunk stretches. Sacral balancing was helpful for her for a day after treatment; therefore will try again next session to improve symmetry of pelvis. + response to K-tape to C- section scar, pt felt supported. Pt receptive to education of vulvar and perineal care as she reports doing many of the suggested actions due to ?PCOS. Physical Therapy Plan Frequency and Duration Frequency of Treatment 1x/Week Duration of treatment (weeks) 12 Plan of Care Start Date 09/14/23 Plan of Care End Date 12/07/23 Next Visit Focus/Plan Next Note Type Treatment Note Next Visit Plan Next: check wand use. Sacral balancing if needed; assess again response to K-tape on C- section scar & do scar mob if needed; educate coordination of proper breathing with transfers and body mechanics w /reverse kegel for PF tightness. Pt educated in proper standing posture, educated in proper body mechanics for lifting for her job. Manual: PF & scar mobility stretching, Stretching: Hip IR's, Trunk L rot/R SB. Manual: Sacral balancing then pelvic/core/hip strengthening , Urachus & Round ligament. EX: hip flexor stretching POC: Pt education, Manual therapy, STM, JMT, Biofeedback with vaginal sensor. Therapeutic Exercises, Therapeutic Activities, Neuromuscular Reeducation, Modalities, HEP.
--- NOTE | 2023-12-21 15:55 | PT-OP ANOTE ---
Per phone conversation, discussed that she was told her petra rangel has , as well as the PT POC. Discussed that the pt could seek new referral with new authorization and return for new rehab program. Pt agreeable to continue with ex's she has and that she will seek a new referral if she wants to return for therapy. Pt understands she is being discharged from physical therapy today.
--- NOTE | 2023-12-21 16:04 | PT.OPDS ---
Current Diagnoses Postural lordosis, lumbosacral region (11/30/23) Low back pain, unspecified (11/30/23) Muscle weakness (generalized) (11/30/23) Lower abdominal pain, unspecified (11/30/23) Unspecified urinary incontinence (11/30/23) Visit Care Team Role Provider Type Katy ANGEL Provider Primary Care Provider Non-Staff Specialty: Medical Address: Phone: Email: Armen Aguilar Attending Provider Non-Staff Family Provider Referring Provider Specialty: Medical Address: [address] [place] [address] Email: Visit Number Visit Number 5 Discharge Summary PT-OP-B Current Condition Start: 09/13/23 18:29 Freq: Status: Active Protocol: Document 09/14/23 08:20 LRN (Rec: 09/14/23 09:46 LRN [id number]) Current Condition History of Current Condition Onset Date 2019 Current Complaints Urinary incontinece, leaks with urgency loose stool fluid . History of Current Condition Pt reports urinary leakage since she started a job that requires heavy lifting, then worsened with the of her daughter. (05/2021). Leaks with heavy lifting, squatting, sneezing, coughing too hard, sit-up, long walks and while at work. Prior Treatments and Tests None Future Testing and Treatments Planned None Developmental History Developmental History 2G, 2P. Dates of births: 2020, 07/2022 (ages 2, 3), both C-sections. First was unplanned , otherwise no complications with births. Treatment Goals Patient/Caregiver Goals Pt goal: control urinary leakage, with squatting, sneezing, coughing too hard, sit up, long walks, and at work. Personal Factors Other Personal Factors That May Effect Work related depression, back Therapy/Recovery pain from job/, headaches 2x/day lasting 5-10 minutes. PT-OP-C Subjective Start: 09/13/23 18:29 Freq: Status: Active Protocol: Document 11/30/23 14:36 LRN (Rec: 11/30/23 15:36 LRN [id number]) OP-PT Subjective Patient Comments Patient Comments Pt is 1.5 yrs post . Still breast feeding. States after last session her hips felt more level but went to work and return to being off. K-tape was helpful in supporting the scar area. Back pain rated 5/10 worse today, carrying back pack made it not feel well. PT-OP-I Pelvic Floor Start: 09/13/23 18:29 Freq: Status: Active Protocol: Document 09/14/23 08:20 LRN (Rec: 09/14/23 09:46 LRN [id number]) Pelvic Floor Assessment Urine Urinary Symptoms Dysuria,Urge Sensation, Hesitancy,Falling Out Feeling/ Heavy Other Urinary Symptoms Small to large leakage. If having a urge, has pain to start urination. Trying to contol the urination causes pain. Leakage Cause Cough,Exercise,Lifting,Sneeze, Urge Other Leakage Causes Daughter crying. Leaks Per Day constant Voiding Frequency 8-10 Nocturia 2 Pads Used In 24 Hours 3 Urine Pad Type Panty Liner Bowel Bowel Symptoms Fecal Leakage,Uncontrolled Flatulence Bowel Movement Frequency 2x/day [place] Stool Chart Comments Stools 2-7 Pelvic Clock Pelvic Clock 12-3 Tenderness,Tightness Pelvic Clock 3-6 Tenderness,Tightness Pelvic Clock 6-9 Tenderness Pelvic Clock 9-12 Tenderness Pelvic Clock Other Tight at Pelvic Clock (PC) 6-7 Less tight PC 7-11 Most tender PC 5-7 Atrophy of R Obturator Internus. Prolapse Cystocele Grade 1 Perineal Descent Bearing Present Contraction Ability Voluntary Contraction Weak Voluntary Relaxation Weak Manual Muscle Testing Left 3 Manual Muscle Testing Right 3 Manual Muscle Testing Anterior 3 Manual Muscle Testing Posterior 3 Muscle Endurance (Seconds) 3 Number of Quick Contractions In 10 2 Seconds Comments Pelvic Floor Comments Dryness of external PF. Redness of Internal vaginal opening. PT-OP-J Posture/Palpation/Skin Start: 09/13/23 18:29 Freq: Status: Active Protocol: Document 09/14/23 08:20 LRN (Rec: 09/14/23 09:46 LRN [id number]) Posture Evaluation Position Standing Head/C-Spine Posture Forward Head L-Spine Posture Increased Lordosis Shoulder Posture (R) Elevated Arm Posture (L) Internally Rotated,(R) Internally Rotated Pelvis Posture Anteriorly Tilted Knee Posture (L) Genu Varus,(R) Genu Varus Comments Posture Comments R foot slightly supinates. Palpation Assessment Location Abdominal Scar Palpation Findings Tenderness Palpation Details Tender on outside ends of scar Abdomen Palpation Location DR Palpation Details No DR Lumbar Spine Palpation Location Spinous process, Lateral Facets & Transverse processes Palpation Details Tender with PA glides. Emigdio Gluteals Palpation Findings Tenderness Palpation Details Tighter on R than L. Sacrum Palpation Location Around Sacrum Palpation Findings Tenderness Palpation Details Sacrum L rotated PT-OP-K Range of Motion Start: 09/13/23 18:29 Freq: Status: Active Protocol: Document 09/14/23 08:20 LRN (Rec: 09/14/23 09:46 LRN [id number]) Lumbar Spine Range of Motion Lumbar Spine Active Degrees Testing Position Standing Flexion 90 Extension 10 Rotation Left 20 Rotation Right 40 Lateral Flexion Left 20 Lateral Flexion Right 10 Hip Goniometric Range of Motion Hip Right Passive Testing Position Supine Internal Rotation 35 External Rotation 70 Left Passive Testing Position Supine Internal Rotation 20 External Rotation 85 PT-OP-M Strength Start: 09/13/23 18:29 Freq: Status: Active Protocol: Document 09/14/23 08:20 LRN (Rec: 09/14/23 09:46 LRN [id number]) Trunk Strength Trunk Manual Muscle Testing Core Stabilization Loss of rotational core stability with MMT of LE's. Hip Strength Hip Manual Muscle Testing Right Flexion (L2) 3 Fair Extension (S1) 3 Fair Abduction 3 Fair Adduction 3 Fair External Rotation 3 Fair Internal Rotation 4+ Good+ Comments Strength is 5/5 except as indicated above. Left Adduction 3 Fair Internal Rotation 4+ Good+ Comments Strength is 5/5 except as indicated above. PT-OP-T Assessment and Plan Start: 09/13/23 18:29 Freq: Status: Active Protocol: Document 12/21/23 15:58 LRN (Rec: 12/21/23 16:04 LRN [id number]) Physical Therapy Assessment Goals Five Impairment Back/hip pain Short Term Goal (STG) Pt will be educated in proper body mechanics for lifting for her job. STG Duration 6 wks-10/26/23 (12/21/23: Pt unavailable for final assessment) Subscription Agent Goal (LTG) Decrease back/hip pain to no greater than 1/10 at work. LTG Duration 12 wks-12/07/23 (12/21/23: Pt unavailable for final assessment) Four Impairment Decreased core strength Impairment Loss of core rotational stability with movement of LE' s. Short Term Goal (STG) Pt will be educated in proper standing posture and hip flexor stretching to be able to correct for lordosis with abdominal tightening. 10/01/23: HEP issued: Supine hip flexor/quad stretching. STG Duration 6 wks-10/26/23 progressed (need educ standing posture, TA ex) Subscription Agent Goal (LTG) Pt will be able to maintain core stability with lifting of LE or MMT of LE's. LTG Duration 12 wks-12/07/23 (12/21/23: Pt unavailable for final assessment) Three Impairment Lower abdominal pain rated 4/ 10 Short Term Goal (STG) Decrease tenderness of C- section scar to no greater than 1/10. STG Duration 6 wks-10/26/23 (12/21/23: Pt unavailable for final assessment) Subscription Agent Goal (LTG) Eliminate lower abdominal pain also prior to urination. LTG Duration 12 wks-12/07/23 (12/21/23: Pt unavailable for final assessment) Two Impairment Urinary and stool fluid leakage from tight PF muscles & weakness of Kegels Impairment Quick contractions in 10 secs - 2x Long hold - 3 secs decreased contraction. Tight and tender PF muscles, worse at PF clock 5-7. Short Term Goal (STG) Pt will be able to relax the PF after contractions with improved number of contractions in 10 secs to 4- 5x. STG Duration 6 wks-10/26/23 (12/21/23: Pt unavailable for final assessment) Care Home Goal (LTG) Improve PF endurance with pt able to control urinary leakage with squatting, sneezing, forceful coughing, sit ups, long walks, and at work. LTG Duration 12 wks-12/07/23 (12/21/23: Pt unavailable for final assessment) One Impairment Pt lacks self care HEP Short Term Goal (STG) Pt will be educated in vulvar and genital care. STG Duration 6 wks-10/26/23 (11/30/23: MET GOAL) Subscription Agent Goal (LTG) Pt will be educated in self care HEP of PF relaxation ex's , LB/core/hip strengthening and hip ROM ex's. 10/01/23: HEP: Quad/Psoas, Piriformis, (sup, sit, longsit ), L trunk rot sit, R SB standing. 11/23/23: I/S pt to equal WB through legs after sacral balancing. LTG Duration 12 wks-12/07/23 (12/21/23: Goal partially met) Assessment Summary Assessment Pt is a 28 yo female w/mixed UI (normal urine times and times btn voids), cytocele, and intermittent stool fluid leakage. She has a tight & tender PF (hx of 2 deliveries), decreased core strength, trunk & hip immobility (IR-R>L) and chronic back pain. The pt has attended 5 therapy visits since starting therapy 09/14/23 . Reasons for lack of attendance vary and sometimes because of being waitlisted for appointment times. The pt has ex's she has been given and understands that if she wants to try to return for a PT program she will need to seek another PT referral and obtain a new authorization for PT. The pt goals were not met. Physical Therapy Plan Discharge Physical Therapy Discharge Comments Plan of care and authorization for PT has . Pt needs new referral and authorization to restart a PT program. Thank you for your referral.
== END 2023-12-24 08:18 ==
LOC: PHYS 14:30
PROVIDERS: Family Provider Student in an Organized Health Care Education/Training Program; Referring Provider Student in an Organized Health Care Education/Training Program; Visit Provider Student in an Organized Health Care Education/Training Program
DX: R32 Unspecified urinary incontinence (principal); M62.81 Muscle weakness (generalized); M54.50 Low back pain, unspecified; R10.30 Lower abdominal pain, unspecified; M40.47 Postural lordosis, lumbosacral region
CPT/HCPCS: 97110; 97140; 97162; 97530; 97535

== ENCOUNTER → 2024-05-21 08:11 | Outpatient (CLI) | payer OTHER, SELFPAY ==
[2024-05-21 09:51] LABS: Add Manual Diff / Slide Review NO; Basophils Absolute Auto 0 /uL (0-100); Basophils Percent Auto 0.6 % (0-2); Eosinophils Absolute Auto 100 /uL (0-450); Eosinophils Percent Auto 1.6 % (2-4); Hematocrit 39.3 % (36-46); Lymphocytes Absolute Auto 2700 /uL (1100-4500); Lymphocytes Percent Auto 34.1 % (25-40); Mean Corpuscular HGB Conc 33.2 % (30-36); Mean Corpuscular Hemoglobin 27.4 PG (26-34); Mean Corpuscular Volume 82.5 fL (80-100); Monocytes Absolute Auto 400 /uL (0-900); Monocytes Percent Auto 5.3 % (3-14); Neutrophils Absolute Auto 4600 /uL (1500-7000); Neutrophils Percent Auto 58.4 % (50-75); Platelet Count 295 X10^3/uL (150-400); Red Blood Cell Count 4.76 X10^6/uL (4.0-5.2); Red Cell Distribution Width 13.1 % (11.6-14.8); White Blood Cell Count 7.9 X10^3/uL (4.5-11.0)
== END ==
PROVIDERS: Family Provider Student in an Organized Health Care Education/Training Program; Referring Provider Chiropractor; Visit Provider Chiropractor
DX: J40 Bronchitis, not specified as acute or chronic (principal); D50.9 Iron deficiency anemia, unspecified
CPT/HCPCS: 36415; 85025; 94060